=== PATIENT | female | born 1980 | race American Indian/Alaskan Native ===

== ENCOUNTER 2016-12-11 12:34 | Emergency (ER) | payer MEDICAID ==
[2016-12-11 12:53] LABS: Basophils % (Auto) 0.5 % (0.0-1.8); Eosinophils % (Auto) 0.1 % (0.0-4.3); Hematocrit 41.1 % (30.3-42.9); Hemoglobin 13.6 gm/dl (10.1-14.3); Mean Corpuscular HGB Conc 33 % (30-34); Mean Corpuscular Hemoglobin 27 pg (28-32); Mean Corpuscular Volume 83 fl (79-97); Platelet Count 268 K/mm3 (140-440); Red Blood Count 4.98 M/mm3 (3.65-5.03); White Blood Count 6.4 K/mm3 (4.5-11.0)
[2016-12-11 13:17] LABS: Alanine Aminotransferase 17 units/L (7-56); Albumin/Globulin Ratio 1.1 %; Alkaline Phosphatase 55 units/L (35-129); Anion Gap 17 mmol/L; Blood Urea Nitrogen 8 mg/dL (7-17); Calcium 9.2 mg/dL (8.4-10.2); Carbon Dioxide 24 mmol/L (22-30); Chloride 97.8 mmol/L (98-107); Glucose 88 mg/dL (65-100); Lipase 33 units/L (13-60); Potassium 3.8 mmol/L (3.6-5.0); Sodium 135 mmol/L (137-145); Total Protein 7.5 g/dL (6.3-8.2)
[2016-12-11 13:28] LABS: Bacteria,Urine 2+ /HPF (Negative); Bilirubin,Urine NEG (Negative); Blood,Urine NEG (Negative); Ketones,Urine 80 mg/dL (Negative); Leukocyte Esterase,Urine SM (Negative); Mucus,Urine 2+ /HPF; Nitrite,Urine NEG (Negative); Protein,Urine <15 mg/dL mg/dL (Negative); Urobilinogen,Urine < 2.0 mg/dL (<2.0)
[2016-12-11] MEDS ORDERED: NACL 0.9% 1000 ML 1,000 ML IV ONE (14:05)
[2016-12-11] MEDS ORDERED: ZOFRAN IV ONE ×2 (14:05→15:01)
[2016-12-11] MEDS ORDERED: TYLENOL PO ONE (14:05)
[2016-12-11] MEDS ORDERED: FLAGYL PO ONE (14:24)
[2016-12-11] MEDS ORDERED: ROCEPHIN IM ONE (14:24)
[2016-12-11] MEDS ORDERED: ZITHROMAX PO ONE (14:24)
--- NOTE | 2016-12-11 14:54 | Ultrasound Report ---
Pelvic and transvaginal sonography: History: Abdominal pain, . Findings: Uterus measures 12.9 x 7.5 x 10.2 cm. Single intrauterine gestation is noted. CRL of fetus 2.4 cm corresponding to 9 weeks and one day of gestation. heart rate 171 per minute. Small subchorionic bleed. Right ovary 3.6 x 2 x 2.8 cm. No mass. Left ovary 2.2 x 1.8 x 4 cm. No mass. Impression: Single viable intrauterine gestation. Small subchorionic bleed.
[2016-12-11] MEDS ORDERED: ZITHROMAX ONE (14:55)
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
[2016-12-11 16:58] VITALS: BP 119/61
== END 2016-12-11 16:57 | disposition home or self-care (01) ==
LOC: ED 12:34
DX: O26.891 Other specified pregnancy related conditions, first trimester (principal); R10.33 Periumbilical pain; E86.0 Dehydration; O99.011 Anemia complicating pregnancy, first trimester; D57.3 Sickle-cell trait; O99.341 Other mental disorders complicating pregnancy, first trimester; F41.9 Anxiety disorder, unspecified; Z3A.09 9 weeks gestation of pregnancy
CPT/HCPCS: 36415; 76801; 76817; 80053; 81001; 83690; 84702; 84703; 85025; 96361; 96372; 96374; 99284; J0696; J2405; J7030

== ENCOUNTER 2017-10-17 21:28 | Emergency (ER) | payer MEDICAID ==
[2017-10-17 23:54] VITALS: BP 113/80
--- NOTE | 2017-10-18 01:31 | Emergency Department Report ---
ED Extremity Problem HPI - General Chief complaint: Extremity Injury, Lower Stated complaint: ABILATERAL ANKLE PAIN,HYPERVENTILATING Time Seen by Provider: 10/18/17 00:33 Source: patient Mode of arrival: Ambulatory Limitations: No Limitations - History of Present Illness Initial comments: 37-year-old -[place] female who recently delivered a baby 3 months ago comes in for bilateral ankle swelling and pain. Patient reports that when she delivered her baby she has swollen ankles and hypertension. Patient denies any shortness of breathing noted chest pain. She reports that the swelling is upper thighs. Patient also reports that his feet are painful to walk. Patient reports that she has tried elevating them but has not noticed any decrease in the swelling. Patient reports a past medical history of anxiety and iron anemia. MD Complaint: extremity pain, extremity swelling -: This morning Location: bilateral lower extremity History of Same: Yes (during her ) Radiation: none Severity scale (0 -10): 0 Quality: aching Consistency: constant Improves with: nothing Worsens with: weight bearing, walking Associated Symptoms: denies other symptoms. denies: chest pain, shortness of breath, fever, myalgias, arthralgias, rash - Related Data Previous Rx's Medication Instructions Recorded Last Taken Type Ibuprofen [Motrin 800 MG tab] 800 mg PO Q8HR PRN #30 tablet 07/23/17 Unknown Rx Lidocain2.5%/Prilocai2.5% [Emla] 5 gm TP ONCE PRN #1 tube 07/23/17 Unknown Rx Allergies Allergy/AdvReac Type Severity Reaction Status Date / Time No Known Allergies Allergy Verified 01/06/15 11:07 ED Review of Systems ROS: Stated complaint: ABILATERAL ANKLE PAIN,HYPERVENTILATING Other details as noted in HPI Constitutional: denies: chills, fever Eyes: denies: eye pain, eye discharge, vision change ENT: denies: ear pain, throat pain Respiratory: denies: cough, shortness of breath, wheezing Cardiovascular: denies: chest pain, palpitations Endocrine: no symptoms reported Gastrointestinal: denies: abdominal pain, nausea, diarrhea Genitourinary: denies: urgency, dysuria, discharge Musculoskeletal: other (bilateral lower leg swelling) Skin: denies: rash, lesions Neurological: denies: headache, weakness, paresthesias Psychiatric: denies: anxiety, depression Hematological/Lymphatic: denies: easy bleeding, easy bruising ED Past Medical Hx - Past Medical History Hx Hypertension: Yes (with ) Hx CVA: No Hx Heart Attack/AMI: No Hx Congestive Heart Failure: No Hx Diabetes: No Hx Deep Vein Thrombosis: No Hx Pulmonary Embolism: No Hx GERD: No Hx Liver Disease: No Hx Renal Disease: No Hx Sickle Cell Disease: No Hx Arthritis: No Hx Headaches / Migraines: No Hx Seizures: No Hx Kidney Stones: No Hx Psychiatric Treatment: Yes (Anxiety) Hx Asthma: No Hx COPD: No Hx Tuberculosis: No Hx Dementia: No Hx HIV: No Additional medical history: Low Iron(anemia) - Surgical History Hx Coronary Stent: No Hx Open Heart Surgery: No Hx Pacemaker: No Hx Internal Defibrillator: No Hx Cholecystectomy: No Hx Appendectomy: No Hx Breast Surgery: No - Social History Smoking Status: Never Smoker Substance Use Type: None - Medications Home Medications: Home Medications Medication Instructions Recorded Confirmed Last Taken Type Ibuprofen [Motrin 800 MG tab] 800 mg PO Q8HR PRN #30 tablet 07/23/17 Unknown Rx Lidocain2.5%/Prilocai2.5% [Emla] 5 gm TP ONCE PRN #1 tube 07/23/17 Unknown Rx ED Physical Exam - General Limitations: No Limitations General appearance: alert, in no apparent distress - Head Head exam: Present: atraumatic, normocephalic - Eye Eye exam: Present: normal appearance - ENT ENT exam: Present: mucous membranes moist - Neck Neck exam: Present: normal inspection - Respiratory Respiratory exam: Present: normal lung sounds bilaterally. Absent: respiratory distress - Cardiovascular Cardiovascular Exam: Present: regular rate, normal rhythm. Absent: systolic murmur, diastolic murmur, rubs, gallop - GI/Abdominal GI/Abdominal exam: Present: soft, normal bowel sounds - Extremities Exam Extremities exam: Present: full ROM, pedal edema. Absent: tenderness - Back Exam Back exam: Present: normal inspection - Neurological Exam Neurological exam: Present: alert, oriented X3 - Psychiatric Psychiatric exam: Present: normal affect, normal mood - Skin Skin exam: Present: warm, dry, intact, normal color. Absent: rash ED Course Vital Signs 10/17/17 10/17/17 22:43 23:53 Temperature 98.1 F 98.2 F Pulse Rate 68 53 L Respiratory 18 16 Rate Blood Pressure 158/96 113/80 [Left] O2 Sat by Pulse 100 97 Oximetry ED Medical Decision Making - Lab Data Result diagrams: 10/18/17 01:49 10/18/17 01:49 - Medical Decision Making Patient's been evaluated by this provider fast track. Have ordered urinalysis CBC CMP. Labs came back with no concerns. Discussed the patient I'll order a Doppler ultrasound of both legs to rule out any clots. Prescription for the order was given to patient. I discussed the patient she can take Tylenol for pain since she is breast-feeding. Patient verbalized understanding. Critical care attestation.: If time is entered above; I have spent that time in minutes in the direct care of this critically ill patient, excluding procedure time. ED Disposition Clinical Impression: Bilateral lower extremity edema, Bilateral lower extremity pain Disposition: DC- TO HOME OR SELFCARE Is pt being admited?: No Does the pt Need Aspirin: No Condition: Stable Additional Instructions: Please return to the emergency room tomorrow morning approximately 8 AM to have venous Dopplers/ultrasound to both legs. You can take Tylenol for pain. Referrals: PRIMARY CARE,MD [Primary Care Provider] - 3-5 Days your,provider [Other] - 3-5 Days Forms: Work/School Release Form(ED), Accompanied Note
[2017-10-18 02:08] LABS: Bacteria,Urine 1+ /HPF (Negative); Bilirubin,Urine NEG (Negative); Blood,Urine NEG (Negative); Color,Urine Yellow (Yellow); Mucus,Urine FEW /HPF; Protein,Urine <15 mg/dL mg/dL (Negative); Urobilinogen,Urine < 2.0 mg/dL (<2.0)
[2017-10-18 02:18] LABS: Basophils % (Auto) 0.5 % (0.0-1.8); Eosinophils # (Auto) 0.1 K/mm3 (0.0-0.4); Eosinophils % (Auto) 1.4 % (0.0-4.3); Hematocrit 36.2 % (30.3-42.9); Hemoglobin 12.3 gm/dl (10.1-14.3); Lymphocytes # (Auto) 1.9 K/mm3 (1.2-5.4); Lymphocytes % (Auto) 37.3 % (13.4-35.0); Mean Corpuscular HGB Conc 34 % (30-34); Mean Corpuscular Hemoglobin 28 pg (28-32); Mean Corpuscular Volume 81 fl (79-97); Monocytes # (Auto) 0.4 K/mm3 (0.0-0.8); Monocytes % (Auto) 6.9 % (0.0-7.3); Platelet Count 231 K/mm3 (140-440); Red Blood Count 4.44 M/mm3 (3.65-5.03); Red Cell Distribution Width 16.3 % (13.2-15.2)
[2017-10-18 02:40] LABS: Alanine Aminotransferase 18 units/L (7-56); BUN/Creatinine Ratio 28; Blood Urea Nitrogen 11 mg/dL (7-17); Hemolysis Index 6
[2017-10-18 02:57] LABS: Albumin 3.9 g/dL (3.9-5)
== END 2017-10-18 03:38 | disposition home or self-care (01) ==
LOC: ED 21:28
DX: R60.0 Localized edema (principal); M25.571 Pain in right ankle and joints of right foot; M25.572 Pain in left ankle and joints of left foot; F41.9 Anxiety disorder, unspecified; Z86.2 Personal history of diseases of the blood and blood-forming organs and certain disorders involving the immune mechanism
CPT/HCPCS: 36415; 80053; 81001; 85025; 99283

== ENCOUNTER 2017-10-18 09:10 | Outpatient (CLI) | payer MEDICAID | END 2017-10-18 09:11 | disposition home or self-care (01) | LOC: VAS 09:10 | PROVIDERS: ATTEND Physician Assistant | DX: M79.661 Pain in right lower leg (principal); M79.662 Pain in left lower leg; M79.89 Other specified soft tissue disorders | CPT/HCPCS: 93970 ==

== ENCOUNTER 2018-01-13 12:58 | Emergency (ER) | payer SELFPAY ==
[2018-01-13 13:13] VITALS: BP 165/87
--- NOTE | 2018-01-13 14:15 | Emergency Department Report ---
ED Extremity Problem HPI - General Chief complaint: Extremity Injury, Lower Stated complaint: ANKLE PAIN Time Seen by Provider: 01/13/18 14:12 Source: patient Mode of arrival: Ambulatory Limitations: No Limitations - History of Present Illness Initial comments: Patient is a 37-year-old female that presents emergency room with bilateral lower extremity pain and swelling. Patient states it's been going on for 4 days. Patient states the pain is a 2 out of 10. Patient states the pain is worse with movement and walking. M better with elevation and rest. Patient states she was wearing her baby here to be checked out and wanted to be evaluated MD Complaint: extremity pain, extremity swelling -: Sudden Location: bilateral lower extremity History of Same: No -: No myalgia, No arthralgia, No fever, No associated dyspnea, No associated chest pain Radiation: none Severity scale (0 -10): 2 Quality: aching Consistency: constant Improves with: elevation, rest Worsens with: walking, exertion Associated Symptoms: denies: chest pain, shortness of breath, fever, myalgias, arthralgias, rash - Related Data Previous Rx's Medication Instructions Recorded Last Taken Type Ibuprofen [Motrin 800 MG tab] 800 mg PO Q8HR PRN #30 tablet 07/23/17 Unknown Rx Lidocain2.5%/Prilocai2.5% [Emla] 5 gm TP ONCE PRN #1 tube 07/23/17 Unknown Rx Allergies Allergy/AdvReac Type Severity Reaction Status Date / Time No Known Allergies Allergy Verified 01/13/18 13:13 ED Review of Systems ROS: Stated complaint: ANKLE PAIN Other details as noted in HPI Constitutional: denies: chills, fever Eyes: denies: eye pain, eye discharge, vision change ENT: denies: ear pain, throat pain Respiratory: denies: cough, shortness of breath, wheezing Cardiovascular: denies: chest pain, palpitations Endocrine: no symptoms reported Gastrointestinal: denies: abdominal pain, nausea, diarrhea Genitourinary: denies: urgency, dysuria, discharge Musculoskeletal: denies: back pain, joint swelling, arthralgia Skin: denies: rash, lesions Neurological: denies: headache, weakness, paresthesias Psychiatric: denies: anxiety, depression Hematological/Lymphatic: denies: easy bleeding, easy bruising ED Past Medical Hx - Past Medical History Previous Medical History?: Yes Hx Hypertension: Yes (with ) Hx CVA: No Hx Heart Attack/AMI: No Hx Congestive Heart Failure: No Hx Diabetes: No Hx Deep Vein Thrombosis: No Hx Pulmonary Embolism: No Hx GERD: No Hx Liver Disease: No Hx Renal Disease: No Hx Sickle Cell Disease: No Hx Arthritis: No Hx Headaches / Migraines: No Hx Seizures: No Hx Kidney Stones: No Hx Psychiatric Treatment: Yes (Anxiety) Hx Asthma: No Hx COPD: No Hx Tuberculosis: No Hx Dementia: No Hx HIV: No Additional medical history: Low Iron(anemia) - Surgical History Past Surgical History?: No Hx Coronary Stent: No Hx Open Heart Surgery: No Hx Pacemaker: No Hx Internal Defibrillator: No Hx Cholecystectomy: No Hx Appendectomy: No Hx Breast Surgery: No - Family History Family history: no significant - Social History Smoking Status: Never Smoker Substance Use Type: None - Medications Home Medications: Home Medications Medication Instructions Recorded Confirmed Last Taken Type Ibuprofen [Motrin 800 MG tab] 800 mg PO Q8HR PRN #30 tablet 07/23/17 Unknown Rx Lidocain2.5%/Prilocai2.5% [Emla] 5 gm TP ONCE PRN #1 tube 07/23/17 Unknown Rx ED Physical Exam - General Limitations: No Limitations General appearance: alert, in no apparent distress - Head Head exam: Present: atraumatic, normocephalic - Eye Eye exam: Present: normal appearance - ENT ENT exam: Present: mucous membranes moist - Neck Neck exam: Present: normal inspection - Respiratory Respiratory exam: Present: normal lung sounds bilaterally. Absent: respiratory distress - Cardiovascular Cardiovascular Exam: Present: regular rate, normal rhythm. Absent: systolic murmur, diastolic murmur, rubs, gallop - GI/Abdominal GI/Abdominal exam: Present: soft, normal bowel sounds - Extremities Exam Extremities exam: Present: normal inspection (except for mild edema), pedal edema (mild bilateral lower extremity edema noted nonpitting. Positive tenderness to palpation over lower extremity and calves) - Back Exam Back exam: Present: normal inspection - Neurological Exam Neurological exam: Present: alert, oriented X3 - Psychiatric Psychiatric exam: Present: normal affect, normal mood - Skin Skin exam: Present: warm, dry, intact, normal color. Absent: rash ED Course Vital Signs 01/13/18 13:05 Temperature 97.6 F Pulse Rate 53 L Respiratory 18 Rate Blood Pressure 165/87 O2 Sat by Pulse 99 Oximetry - Reevaluation(s) Reevaluation #1: Preliminary reading read as negative. 01/13/18 15:36 Reevaluation #2: Coast all results with patient. Patient agrees plan of care. Patient to be discharged home with follow-up instructions. 01/13/18 16:13 ED Medical Decision Making - Radiology Data Radiology results: report reviewed Doppler ultrasound of bilateral lower extremities negative - Medical Decision Making She is a 37-year-old female that presents emergency room with bilateral lower extremity pain and edema. Patient's ultrasound Doppler pulmonary report was negative for DVT. Patient will be discharged home. Patient is stable for discharge. Patient given discharge instructions patient given return to ER instructions patient instructed to increase water. Patient states she has not been drinking a lot of water and is breast-feeding. Encouraged patient to increase her water to 3 L per day and decrease her salt intake. Patient also encouraged to use compression stockings. Patient encouraged to follow up with primary care in 3-5 days for further evaluation and treatment. - Differential Diagnosis le swelling. salt retention. le pain. dvt. edema. Critical care attestation.: If time is entered above; I have spent that time in minutes in the direct care of this critically ill patient, excluding procedure time. ED Disposition Clinical Impression: Swelling of both lower extremities, Bilateral lower extremity pain Disposition: DC- TO HOME OR SELFCARE Is pt being admited?: No Does the pt Need Aspirin: No Condition: Stable Instructions: Leg Edema (ED) Additional Instructions: Patient follow up with primary care in 3-5 days. Patient to return to ER if condition worsens. Patient increase water. Patient eat a low-salt heart healthy diet. Patient to elevate legs and use compression stockings. Referrals: PRIMARY CARE, [Primary Care Provider] - 3-5 Days Time of Disposition: 16:11
== END 2018-01-13 17:30 | disposition home or self-care (01) ==
LOC: ED 12:58
DX: R22.43 Localized swelling, mass and lump, lower limb, bilateral (principal); M79.605 Pain in left leg; M79.604 Pain in right leg; F41.9 Anxiety disorder, unspecified; Z86.2 Personal history of diseases of the blood and blood-forming organs and certain disorders involving the immune mechanism
CPT/HCPCS: 93970

== ENCOUNTER 2018-08-15 22:55 | Emergency (ER) | payer OTHER ==
[2018-08-15 23:07] VITALS: BP 143/78
[2018-08-15 23:56] LABS: Basophils % (Auto) 0.8 % (0.0-1.8); Eosinophils # (Auto) 0.1 K/mm3 (0.0-0.4); Hematocrit 38.3 % (30.3-42.9); Hemoglobin 12.9 gm/dl (10.1-14.3); Lymphocytes # (Auto) 2.3 K/mm3 (1.2-5.4); Lymphocytes % (Auto) 38.4 % (13.4-35.0); Mean Corpuscular HGB Conc 34 % (30-34); Mean Corpuscular Volume 82 fl (79-97); Monocytes # (Auto) 0.7 K/mm3 (0.0-0.8); Monocytes % (Auto) 11.9 % (0.0-7.3); Platelet Count 258 K/mm3 (140-440); Red Blood Count 4.65 M/mm3 (3.65-5.03); Red Cell Distribution Width 14.2 % (13.2-15.2)
[2018-08-16 00:08] LABS: BUN/Creatinine Ratio 20; Blood Urea Nitrogen 10 mg/dL (7-17); Hemolysis Index 5
--- NOTE | 2018-08-16 00:32 | XRay Report ---
PROCEDURE: XR CHEST ROUTINE 2V TECHNIQUE: PA and lateral chest radiographs were obtained. HISTORY: chest pain COMPARISONS: None. FINDINGS: Heart: Normal. Mediastinum/Vessels: Normal. Lungs/Pleural space: Normal. Bony thorax: No acute osseous abnormality. IMPRESSION: Normal examination. This document is electronically signed by Elliot Aaron MD., August 16 2018 12:29:46 AM ET
--- NOTE | 2018-08-16 05:31 | Emergency Department Report ---
ED General Adult HPI - General Chief complaint: Chest Pain Stated complaint: CHEST PAIN Time Seen by Provider: 08/16/18 00:46 Source: patient Mode of arrival: Ambulatory Limitations: No Limitations - History of Present Illness Initial comments: 37-year-old female to emergency Department complaining of chest pain which started while she was in a very heated argument with her significant other. States stated she felt a sharp pain radiating across her chest, which continue to linger for about 5 minutes and had some tingling which made her glucose cancer. She came to the ER to get evaluated. She reports no trauma, no hemoptysis, no hematemesis, chills, sweats, nausea, vomiting. Pain is resolved at this point, but she did take a baby aspirin Severity scale (0 -10): 6 - Related Data Previous Rx's Medication Instructions Recorded Last Taken Type Ibuprofen [Motrin 800 MG tab] 800 mg PO Q8HR PRN #30 tablet 07/23/17 Unknown Rx Lidocain2.5%/Prilocai2.5% [Emla] 5 gm TP ONCE PRN #1 tube 07/23/17 Unknown Rx Allergies Allergy/AdvReac Type Severity Reaction Status Date / Time No Known Allergies Allergy Verified 01/13/18 13:13 ED Review of Systems ROS: Stated complaint: CHEST PAIN Other details as noted in HPI Constitutional: denies: chills, fever Eyes: denies: eye pain, eye discharge, vision change ENT: denies: ear pain, throat pain Respiratory: denies: cough, shortness of breath, wheezing Cardiovascular: denies: chest pain, palpitations Endocrine: no symptoms reported Gastrointestinal: denies: abdominal pain, nausea, diarrhea Genitourinary: denies: urgency, dysuria, discharge Musculoskeletal: denies: back pain, joint swelling, arthralgia Skin: denies: rash, lesions Neurological: denies: headache, weakness, paresthesias Psychiatric: denies: anxiety, depression Hematological/Lymphatic: denies: easy bleeding, easy bruising ED Past Medical Hx - Past Medical History Previous Medical History?: Yes Hx Hypertension: Yes (with ) Hx CVA: No Hx Heart Attack/AMI: No Hx Congestive Heart Failure: No Hx Diabetes: No Hx Deep Vein Thrombosis: No Hx Pulmonary Embolism: No Hx GERD: No Hx Liver Disease: No Hx Renal Disease: No Hx Sickle Cell Disease: No Hx Arthritis: No Hx Headaches / Migraines: No Hx Seizures: No Hx Kidney Stones: No Hx Psychiatric Treatment: Yes (Anxiety) Hx Asthma: No Hx COPD: No Hx Tuberculosis: No Hx Dementia: No Hx HIV: No Additional medical history: Low Iron(anemia) - Surgical History Past Surgical History?: No Hx Coronary Stent: No Hx Open Heart Surgery: No Hx Pacemaker: No Hx Internal Defibrillator: No Hx Cholecystectomy: No Hx Appendectomy: No Hx Breast Surgery: No - Social History Smoking Status: Never Smoker Substance Use Type: None - Medications Home Medications: Home Medications Medication Instructions Recorded Confirmed Last Taken Type Ibuprofen [Motrin 800 MG tab] 800 mg PO Q8HR PRN #30 tablet 07/23/17 Unknown Rx Lidocain2.5%/Prilocai2.5% [Emla] 5 gm TP ONCE PRN #1 tube 07/23/17 Unknown Rx ED Physical Exam - General Limitations: No Limitations General appearance: alert, in no apparent distress - Head Head exam: Present: atraumatic, normocephalic - Eye Eye exam: Present: normal appearance - ENT ENT exam: Present: mucous membranes moist - Neck Neck exam: Present: normal inspection - Respiratory Respiratory exam: Present: normal lung sounds bilaterally. Absent: respiratory distress - Cardiovascular Cardiovascular Exam: Present: regular rate, normal rhythm. Absent: systolic murmur, diastolic murmur, rubs, gallop - GI/Abdominal GI/Abdominal exam: Present: soft, normal bowel sounds - Extremities Exam Extremities exam: Present: normal inspection - Back Exam Back exam: Present: normal inspection - Neurological Exam Neurological exam: Present: alert, oriented X3 - Psychiatric Psychiatric exam: Present: normal affect, normal mood - Skin Skin exam: Present: warm, dry, intact, normal color. Absent: rash ED Course Vital Signs 08/15/18 23:06 Temperature 97.9 F Pulse Rate 58 L Respiratory 18 Rate Blood Pressure 143/78 O2 Sat by Pulse 100 Oximetry ED Medical Decision Making - Lab Data Result diagrams: 08/15/18 23:30 08/15/18 23:30 - Medical Decision Making Social patient the findings of her examination and testing or lack thereof. She also understands the importance of following up with cardiology for stress test given the nature of her chest pain Critical care attestation.: If time is entered above; I have spent that time in minutes in the direct care of this critically ill patient, excluding procedure time. ED Disposition Clinical Impression: Chest pain, Chest pain in adult Disposition: DC-01 TO HOME OR SELFCARE Is pt being admited?: No Does the pt Need Aspirin: No Condition: Stable Instructions: Chest Pain (ED), Aspirin (By mouth) Referrals: [facility] TAMANNA [Primary Care Provider] - 3-5 Days BUTCH VERA MD [Staff Physician] - 3-5 Days (Please follow with cardiology as we discusses there is a need for an exercise stress test given the nature and evolution of your symptoms.)
== END 2018-08-16 03:46 | disposition home or self-care (01) ==
LOC: ED 22:55
DX: R07.89 Other chest pain (principal); I10 Essential (primary) hypertension; F41.9 Anxiety disorder, unspecified; Z86.2 Personal history of diseases of the blood and blood-forming organs and certain disorders involving the immune mechanism
CPT/HCPCS: 36415; 71046; 80048; 84484; 85025; 93005; 93010

== ENCOUNTER 2019-04-20 15:10 | Emergency (ER) | payer OTHER ==
--- NOTE | 2019-04-20 16:15 | Emergency Department Report ---
Blank Doc - Documentation Documentation: 38-year-old female that presents with headache, bilateral leg pain and swellin gs. HX of last week. This initial assessment/diagnostic orders/clinical plan/treatment(s) is/are subject to change based on patient's health status, clinical progression and re- assessment by fellow clinical providers in the ED. Further treatment and workup at subsequent clinical providers discretion. Patient/guardians urged not to elope from the ED as their condition may be serious if not clinically assessed and managed. Initial orders include: 1- Patient sent to MAIN ED for further evaluation and treatment 2- labs 3- UA
[2019-04-20 16:18] VITALS: BP 128/81
[2019-04-20 16:56] LABS: Basophils % (Auto) 0.3 % (0.0-1.8); Eosinophils # (Auto) 0.1 K/mm3 (0.0-0.4); Eosinophils % (Auto) 0.7 % (0.0-4.3); Hemoglobin 10.2 gm/dl (10.1-14.3); Lymphocytes # (Auto) 1.7 K/mm3 (1.2-5.4); Lymphocytes % (Auto) 21.5 % (13.4-35.0); Monocytes # (Auto) 0.7 K/mm3 (0.0-0.8); Monocytes % (Auto) 8.5 % (0.0-7.3)
[2019-04-20 17:00] LABS: Bacteria,Urine 1+ /HPF (Negative); Mucus,Urine 1+ /HPF
[2019-04-20 17:07] LABS: Bilirubin,Urine NEG (Negative); Blood,Urine MOD (Negative); Color,Urine Yellow (Yellow); Protein,Urine <15 mg/dL mg/dL (Negative); Urobilinogen,Urine < 2.0 mg/dL (<2.0)
[2019-04-20 17:09] LABS: Alanine Aminotransferase 14 units/L (7-56); Albumin 3.1 g/dL (3.9-5); BUN/Creatinine Ratio 18; Blood Urea Nitrogen 7 mg/dL (7-17); Calcium 8.8 mg/dL (8.4-10.2); Hematocrit 30.8 % (30.3-42.9); Hemolysis Index 1; Mean Corpuscular HGB Conc 33 % (30-34); Mean Corpuscular Volume 81 fl (79-97); Platelet Count 350 K/mm3 (140-440); Red Cell Distribution Width 15.6 % (13.2-15.2)
[2019-04-20] MEDS ORDERED: BUTALB/ACETAMINOPHEN/CAFFEINE TAB PO ONE (18:02)
--- NOTE | 2019-04-20 18:05 | Emergency Department Report ---
HPI - General Chief Complaint: Headache Time Seen by Provider: 04/20/19 16:12 - HPI HPI: 38-year-old female presents to the emergency department with a complaint of a 4 to five-day history of a headache. It is mostly around the left scientologist but sometimes it will switch sides. She denies any fever, vision change, slurred speech or any neurological deficits. She has taken some ibuprofen and other OTC meds without any relief. The patient just had a C- section done 5 days ago at [facility] but the baby was unfortunately stillborn. She has a past medical history of anxiety and anemia. She denies any chest pain, shortness of breath but does have some lower extremity swelling. ED Past Medical Hx - Past Medical History Previous Medical History?: Yes Hx Hypertension: No Hx CVA: No Hx Heart Attack/AMI: No Hx Congestive Heart Failure: No Hx Diabetes: No Hx Deep Vein Thrombosis: No Hx Pulmonary Embolism: No Hx GERD: No Hx Liver Disease: No Hx Renal Disease: No Hx Sickle Cell Disease: No Hx Arthritis: No Hx Headaches / Migraines: No Hx Seizures: No Hx Kidney Stones: No Hx Psychiatric Treatment: Yes (Anxiety) Hx Asthma: No Hx COPD: No Hx Tuberculosis: No Hx Dementia: No Hx HIV: No Additional medical history: Low Iron(anemia) - Surgical History Past Surgical History?: No Hx Coronary Stent: No Hx Open Heart Surgery: No Hx Pacemaker: No Hx Internal Defibrillator: No Hx Cholecystectomy: No Hx Appendectomy: No Hx Breast Surgery: No - Social History Smoking Status: Never Smoker Substance Use Type: None - Medications Home Medications: Home Medications Medication Instructions Recorded Confirmed Last Taken Type Ibuprofen [Motrin 800 MG tab] 800 mg PO Q8HR PRN #30 tablet 07/23/17 Unknown Rx Lidocain2.5%/Prilocai2.5% [Emla] 5 gm TP ONCE PRN #1 tube 07/23/17 Unknown Rx Butalb/Acetaminophen/Caffeine 1 cap PO Q8HR PRN #12 cap 04/20/19 Unknown Rx [Fioricet 50-300-40 mg CAP] ED Review of Systems ROS: Stated complaint: RECENT C SECTION/HBP Other details as noted in HPI Comment: All other systems reviewed and negative Constitutional: denies: chills, fever Eyes: denies: eye pain, vision change ENT: denies: ear pain, throat pain Respiratory: denies: cough, shortness of breath Cardiovascular: edema. denies: chest pain Gastrointestinal: denies: abdominal pain, vomiting Genitourinary: denies: dysuria, discharge Musculoskeletal: myalgia. denies: back pain Skin: denies: rash, lesions Neurological: headache. denies: weakness, numbness, paresthesias Physical Exam - Physical Exam Vital Signs: Vital Signs 04/20/19 16:12 Temperature 98.3 F Pulse Rate 75 Respiratory 17 Rate Blood Pressure 128/81 O2 Sat by Pulse 99 Oximetry Physical Exam: GENERAL: The patient is well-developed well-nourished. HENT: Normocephalic. Atraumatic. Patient has moist mucous membranes. EYES: Extraocular motions are intact. Pupils equal reactive to light bilaterally. No nystagmus. NECK: Supple. Trachea is midline. CHEST/LUNGS: Clear to auscultation. There is no respiratory distress noted. HEART/CARDIOVASCULAR: Regular. There is no tachycardia. There is no murmur. ABDOMEN: Abdomen is soft, nontender. Patient has normal bowel sounds. There is no abdominal distention. SKIN: Skin is warm and dry. NEURO: The patient is awake, alert, and oriented. The patient is cooperative. The patient has no focal neurologic deficits. Normal speech. Cranial nerves II through XII grossly intact. MUSCULOSKELETAL: There is no tenderness or deformity.There is no evidence of acute injury. ED Course Vital Signs 04/20/19 16:12 Temperature 98.3 F Pulse Rate 75 Respiratory 17 Rate Blood Pressure 128/81 O2 Sat by Pulse 99 Oximetry ED Medical Decision Making - Lab Data Result diagrams: 04/20/19 16:30 04/20/19 16:30 - Radiology Data Radiology results: report reviewed CT head/brain wo con INDICATION / CLINICAL INFORMATION: 38 years Female; headache. TECHNIQUE: Routine CT head without contrast. All CT scans at this location are performed using CT dose reduction for ALARA by means of automated exposure control. COMPARISON: None. FINDINGS: BRAIN / INTRACRANIAL CONTENTS: There is slight increased attenuation seen along the posterolateral tentorium cerebelli on the right, felt to be related to prominent vessels, which should be of no clinical significance. Otherwise, no acute hemorrhage, mass effect, midline shift, hydrocephalus, or acute, large territorial infarct. No chronic infarct or atrophy appreciated. No significant white matter abnormality. CRANIOCERVICAL JUNCTION: No significant abnormality. ORBITS: No significant abnormality of visualized orbits. SINUSES / MASTOIDS: No significant abnormality the visualized paranasal sinuses or mastoid air cells. ADDITIONAL FINDINGS: None. IMPRESSION: 1. No focal mass, hemorrhage, hydrocephalus, or acute, large territorial infarct. - Medical Decision Making This patient presents with a headache that has been going on for the past 4-5 days since she had a . On examination she does not have any focal, motor or sensory deficits in her cranial nerves are intact. CT scan of the head without contrast was done that does not show any bleed, shift, mass, ischemia, or any other acute process. Her labs are unremarkable and are not consistent with preeclampsia. Vital signs stable including being afebrile. The patient complains of some lower extremity swelling and discomfort. I do not appreciate any significant edema but given the patient's recent , surgery, and her complaints, the patient will be set up for bilateral lower extremity venous Doppler ultrasounds tomorrow. If positive, she will be redirected to the emergency department. She was given 1 dose of Fioricet here for her headache which completely resolved the headache prior to discharge. - Differential Diagnosis tension headache, migraine, subarachnoid Critical Care Time: No Critical care attestation.: If time is entered above; I have spent that time in minutes in the direct care of this critically ill patient, excluding procedure time. ED Disposition Clinical Impression: Swelling of lower extremity Headache Qualifiers: Headache type: unspecified Headache chronicity pattern: unspecified pattern Intractability: not intractable Qualified Code(s): R51 - Headache Disposition: DC-01 TO HOME OR SELFCARE Is pt being admited?: No Condition: Stable Instructions: Acute Headache (ED), Leg Edema (ED) Additional Instructions: Please follow-up with a primary care physician in the next few days. Return to the emergency Department with any worsening of your symptoms or any acute distress. I am giving you in order to return in the morning to the outpatient imaging portion of the hospital to have both of your legs ultrasounded to rule out blood clots. If positive, he will be redirected back to the emergency department. If negative, please make sure to follow-up with your primary care physician and METAPHYSICIST. Prescriptions: Butalb/Acetaminophen/Caffeine [Fioricet 50-300-40 mg CAP] 1 cap PO Q8HR PRN #12 cap PRN Reason: Headache Referrals: PCP, Your [Other] - 2-3 Days Time of Disposition: 20:01
--- NOTE | 2019-04-20 19:35 | Cat Scan Report ---
CT head/brain wo con INDICATION / CLINICAL INFORMATION: 38 years Female; headache. TECHNIQUE: Routine CT head without contrast. All CT scans at this location are performed using CT dos e reduction for ALARA by means of automated exposure control. COMPARISON: None. FINDINGS: BRAIN / INTRACRANIAL CONTENTS: There is slight increased attenuation seen along the posterolateral te ntorium cerebelli on the right, felt to be related to prominent vessels, which should be of no clinic al significance. Otherwise, no acute hemorrhage, mass effect, midline shift, hydrocephalus, or acute, large territori al infarct. No chronic infarct or atrophy appreciated. No significant white matter abnormality. CRANIOCERVICAL JUNCTION: No significant abnormality. ORBITS: No significant abnormality of visualized orbits. SINUSES / MASTOIDS: No significant abnormality the visualized paranasal sinuses or mastoid air cells. ADDITIONAL FINDINGS: None. IMPRESSION: 1. No focal mass, hemorrhage, hydrocephalus, or acute, large territorial infarct. Signer Name: Devaughn Law MD, III Signed: 04/20/2019 7:31 PM Workstation Name: [id number]
== END 2019-04-20 20:20 | disposition home or self-care (01) ==
LOC: ED 15:10
DX: R22.43 Localized swelling, mass and lump, lower limb, bilateral (principal); F41.9 Anxiety disorder, unspecified; Z86.2 Personal history of diseases of the blood and blood-forming organs and certain disorders involving the immune mechanism; Z79.1 Long term (current) use of non-steroidal anti-inflammatories (NSAID); Z79.899 Other long term (current) drug therapy
CPT/HCPCS: 36415; 70450; 80053; 81001; 85025; 99284

== ENCOUNTER 2019-04-21 10:44 | Outpatient (CLI) | payer OTHER ==
--- NOTE | 2019-04-21 13:18 | Vascular Lab Report ---
DUPLEX DOPPLER LOWER EXTREMITY VEINS, BILATERAL INDICATION: BILATERAL LOWER EXTREMITY PAIN AND SWELLING. TECHNIQUE: Duplex doppler imaging was performed through the veins of both lower extremities using venous bisi leo and other maneuvers. COMPARISON: None available. FINDINGS: Right Common Femoral vein: Negative. Right Superficial Femoral vein: Negative. Right Popliteal vein: Negative. Right Calf veins: Negative. Left Common Femoral vein: Negative. Left Superficial Femoral vein: Negative. Left Popliteal vein: Negative. Left Calf veins: Negative. Additional findings: None. IMPRESSION: 1. No sonographic evidence for DVT in either lower extremity. Signer Name: Bora Vyas MD Signed: 04/21/2019 1:14 PM Workstation Name: [id number]
== END 2019-04-21 10:45 | disposition home or self-care (01) ==
LOC: VAS 10:44
PROVIDERS: ATTEND Emergency Medicine
DX: M79.605 Pain in left leg (principal); M79.604 Pain in right leg
CPT/HCPCS: 93970

== ENCOUNTER 2019-04-25 08:50 | Observation (INO) | payer OTHER ==
[2019-04-25 10:34] LABS: Basophils % (Auto) 0.6 % (0.0-1.8); Eosinophils # (Auto) 0.1 K/mm3 (0.0-0.4); Eosinophils % (Auto) 0.8 % (0.0-4.3); Hematocrit 31.9 % (30.3-42.9); Hemoglobin 10.5 gm/dl (10.1-14.3); Lymphocytes # (Auto) 1.5 K/mm3 (1.2-5.4); Lymphocytes % (Auto) 24.7 % (13.4-35.0); Mean Corpuscular HGB Conc 33 % (30-34); Mean Corpuscular Volume 81 fl (79-97); Monocytes # (Auto) 0.4 K/mm3 (0.0-0.8); Monocytes % (Auto) 6.2 % (0.0-7.3); Platelet Count 409 K/mm3 (140-440); Red Blood Count 3.95 M/mm3 (3.65-5.03); Red Cell Distribution Width 15.3 % (13.2-15.2)
[2019-04-25 10:46] LABS: INR 1.04 (0.87-1.13)
--- NOTE | 2019-04-25 10:46 | Emergency Department Report ---
ED General Adult HPI - General Chief complaint: Abdominal Pain Stated complaint: BODY PAIN/HEMORRHOIDS Time Seen by Provider: 04/25/19 09:33 Source: patient Mode of arrival: Wheelchair Limitations: No Limitations - History of Present Illness Initial comments: Patient presents to the emergency department with the chief complaint of bilateral was strongly pain, abdominal pain, chest pain, shortness breath. Patient states she had an emergent for demise on April 15 and has had issues since that time. Patient complains of a lower lower extremity leg pain or swelling as well as diffuse abdominal pain. She also complains of diffuse chest pain with shortness of breath. -: Gradual Location: chest, abdomen Severity scale (0 -10): 5 Quality: sharp Consistency: constant Improves with: none Worsens with: none Associated Symptoms: denies other symptoms Treatments Prior to Arrival: none - Related Data Previous Rx's Medication Instructions Recorded Last Taken Type Ibuprofen [Motrin 800 MG tab] 800 mg PO Q8HR PRN #30 tablet 07/23/17 Unknown Rx Lidocain2.5%/Prilocai2.5% [Emla] 5 gm TP ONCE PRN #1 tube 07/23/17 Unknown Rx Butalb/Acetaminophen/Caffeine 1 cap PO Q8HR PRN #12 cap 04/20/19 Unknown Rx [Fioricet 50-300-40 mg CAP] Allergies Allergy/AdvReac Type Severity Reaction Status Date / Time No Known Allergies Allergy Verified 01/13/18 13:13 ED Review of Systems ROS: Stated complaint: BODY PAIN/HEMORRHOIDS Other details as noted in HPI Constitutional: denies: chills, fever Eyes: denies: eye pain, eye discharge, vision change ENT: denies: ear pain, throat pain Respiratory: denies: cough, shortness of breath, wheezing Cardiovascular: denies: chest pain, palpitations Endocrine: no symptoms reported Gastrointestinal: denies: abdominal pain, nausea, diarrhea Genitourinary: denies: urgency, dysuria, discharge Musculoskeletal: denies: back pain, joint swelling, arthralgia Skin: denies: rash, lesions Neurological: denies: headache, weakness, paresthesias Psychiatric: denies: anxiety, depression Hematological/Lymphatic: denies: easy bleeding, easy bruising ED Past Medical Hx - Past Medical History Previous Medical History?: Yes Hx Hypertension: Yes Hx CVA: No Hx Heart Attack/AMI: No Hx Congestive Heart Failure: No Hx Diabetes: No Hx Deep Vein Thrombosis: No Hx Pulmonary Embolism: No Hx GERD: No Hx Liver Disease: No Hx Renal Disease: No Hx Sickle Cell Disease: No Hx Arthritis: No Hx Headaches / Migraines: No Hx Seizures: No Hx Kidney Stones: No Hx Psychiatric Treatment: Yes (Anxiety) Hx Asthma: No Hx COPD: No Hx Tuberculosis: No Hx Dementia: No Hx HIV: No Additional medical history: Low Iron(anemia) - Surgical History Past Surgical History?: Yes Hx Coronary Stent: No Hx Open Heart Surgery: No Hx Pacemaker: No Hx Internal Defibrillator: No Hx Cholecystectomy: No Hx Appendectomy: No Hx Breast Surgery: No Additional Surgical History: x 1 - Social History Smoking Status: Never Smoker Substance Use Type: None - Medications Home Medications: Home Medications Medication Instructions Recorded Confirmed Last Taken Type Ibuprofen [Motrin 800 MG tab] 800 mg PO Q8HR PRN #30 tablet 07/23/17 Unknown Rx Lidocain2.5%/Prilocai2.5% [Emla] 5 gm TP ONCE PRN #1 tube 07/23/17 Unknown Rx Butalb/Acetaminophen/Caffeine 1 cap PO Q8HR PRN #12 cap 04/20/19 Unknown Rx [Fioricet 50-300-40 mg CAP] ED Physical Exam - General Limitations: No Limitations General appearance: alert, in no apparent distress - Head Head exam: Present: atraumatic, normocephalic - Eye Eye exam: Present: normal appearance, PERRL, EOMI - ENT ENT exam: Present: mucous membranes moist - Neck Neck exam: Present: normal inspection - Respiratory Respiratory exam: Present: normal lung sounds bilaterally. Absent: respiratory distress - Cardiovascular Cardiovascular Exam: Present: regular rate, normal rhythm. Absent: systolic murmur, diastolic murmur, rubs, gallop - GI/Abdominal GI/Abdominal exam: Present: soft, normal bowel sounds. Absent: distended, tenderness - Extremities Exam Extremities exam: Present: normal inspection - Back Exam Back exam: Present: normal inspection - Neurological Exam Neurological exam: Present: alert, oriented X3, CN II-XII intact. Absent: motor sensory deficit - Psychiatric Psychiatric exam: Present: normal affect, normal mood - Skin Skin exam: Present: warm, dry, intact, normal color. Absent: rash ED Course Vital Signs 04/25/19 04/25/19 08:53 11:36 Temperature 99.1 F Pulse Rate 80 75 Respiratory 16 16 Rate Blood Pressure 122/85 Blood Pressure 125/86 [Left] O2 Sat by Pulse 99 99 Oximetry ED Medical Decision Making - Lab Data Result diagrams: 04/25/19 10:21 04/25/19 10:21 Lab Results 04/25/19 Range/Units 10:21 WBC 6.2 (4.5-11.0) K/mm3 RBC 3.95 (3.65-5.03) M/mm3 Hgb 10.5 (10.1-14.3) gm/dl Hct 31.9 (30.3-42.9) % MCV 81 (79-97) fl MCH 27 L (28-32) pg MCHC 33 (30-34) % RDW 15.3 H (13.2-15.2) % Plt Count 409 (140-440) K/mm3 Lymph % (Auto) 24.7 (13.4-35.0) % Carlton % (Auto) 6.2 (0.0-7.3) % Eos % (Auto) 0.8 (0.0-4.3) % Baso % (Auto) 0.6 (0.0-1.8) % Lymph # 1.5 (1.2-5.4) K/mm3 Carlton # 0.4 (0.0-0.8) K/mm3 Eos # 0.1 (0.0-0.4) K/mm3 Baso # 0.0 (0.0-0.1) K/mm3 Seg Neutrophils % 67.7 (40.0-70.0) % Seg Neutrophils # 4.2 (1.8-7.7) K/mm3 - Radiology Data Radiology results: report reviewed - Medical Decision Making Results discussed with patient Critical care attestation.: If time is entered above; I have spent that time in minutes in the direct care of this critically ill patient, excluding procedure time. ED Disposition Clinical Impression: Intra-abdominal abscess Disposition: OP ADMIT IP TO THIS HOSP Is pt being admited?: Yes Does the pt Need Aspirin: No Condition: Stable Instructions: Abdominal Pain (ED) Referrals: YADIRA ROSARIO [Other] - 3-5 Days
[2019-04-25 10:47] LABS: Partial Thromboplastin Time 25.7 Sec. (24.2-36.6)
[2019-04-25 10:56] LABS: Alanine Aminotransferase 12 units/L (7-56); Albumin 3.3 g/dL (3.9-5); BUN/Creatinine Ratio 30; Blood Urea Nitrogen 9 mg/dL (7-17); Calcium 9.3 mg/dL (8.4-10.2); Hemolysis Index 11
[2019-04-25 11:31] LABS: Bilirubin,Urine NEG (Negative); Blood,Urine LG (Negative); Color,Urine Straw (Yellow); Mucus,Urine FEW /HPF; Protein,Urine <15 mg/dL mg/dL (Negative); Urobilinogen,Urine < 2.0 mg/dL (<2.0)
--- NOTE | 2019-04-25 12:06 | Cat Scan Report ---
CTA CHEST WITH IV CONTRAST INDICATION: CP with SOB. TECHNIQUE: Axial CT images were obtained through the chest after injection of 100 cc Omnipaque 350 IV contrast. 3 plane MIP reconstructions were produced. All CT scans at this location are performed using CT dose reduction for ALARA by means of automated exposure control. COMPARISON: None available. FINDINGS: Pulmonary Arteries: No pulmonary emboli. Thoracic Aorta: No acute abnormality. Heart: Normal. Lungs: No acute air space or interstitial disease. Pleura: No pleural effusion. No pneumothorax. Lymph Nodes: No significant adenopathy. Additional Findings: None. Skeletal Structures: No significant osseous abnormality. IMPRESSION: 1. No CT evidence for pulmonary embolism. 2. No acute findings. Signer Name: Steve Bowden MD Signed: 04/25/2019 12:02 PM Workstation Name: [id number]
--- NOTE | 2019-04-25 12:14 | Cat Scan Report ---
CT ABDOMEN AND PELVIS WITH IV CONTRAST INDICATION: abdominal pain. COMPARISON: None available. TECHNIQUE: All CT scans at this facility use dose modulation, automated exposure control, iterative reconstructi on or weight based dosing, when appropriate, to reduce radiation dose to as low as reasonably achieva ble. FINDINGS: Lung Bases: No significant abnormality. Skeletal System: No acute abnormality. ABDOMEN: Liver: No significant abnormality. Gallbladder: No significant abnormality. Bile Ducts: No significant abnormality. Pancreas: No significant abnormality. Spleen: No significant abnormality. Adrenals: No significant abnormality. Right Kidney: No acute findings. Incidental cysts. Left Kidney: No acute findings. Incidental posterior cyst. Upper GI tract: No significant abnormality. Lymph Nodes: No significant adenopathy. Aorta: No significant abnormality. Additional Findings: No significant abnormality. PELVIS: Colon: No acute abnormality. Diverticulosis is noted. Urinary Bladder and Distal Ureters: No significant abnormality. Appendix: No significant abnormality. Lymph Nodes: No significant adenopathy. Additional Findings: Lateral to the cecum, there is a circumscribed fluid collection with mild periph eral enhancement. This measures 5.1 x 2.3 cm on coronal image 42 and extends anterior to posterior 2. 4 cm on axial image 92. There is mild stranding/inflammation surrounding this. Adjacent ascending col on is normal. Uterus is heterogeneous and enlarged, this could be due to state. IMPRESSION: 1. Circumscribed fluid collection lateral to the descending colon in the right lower quadrant with m ild surrounding inflammation. This measures 5.1 x 2.4 x 2.3 cm. This is not associated with underlyin g colon or the appendix. This could be a small abscess. This does not have the typical appearance of epiploic appendicitis or omental infarct. 2. Incidental findings, as above. Signer Name: Steve Bowden MD Signed: 04/25/2019 12:10 PM Workstation Name: [id number]
[2019-04-25] MEDS ORDERED: ALBUTEROL 2.5 MG/3 ML NEBU IH PRN (14:13)
[2019-04-25] MEDS ORDERED: PIPERACIL/TAZOBACTA 4.5/NS 100 4.5 GM/100 ML VIAL IV ONE (14:13)
[2019-04-25] MEDS ORDERED: ONDANSETRON 4 MG/2 ML INJ IV PRN (14:13)
[2019-04-25] MEDS ORDERED: SODIUM CHLORIDE 0.9% 1000 ML 1,000 ML IV ONE (14:28)
[2019-04-25] MEDS ORDERED: SODIUM CHLORIDE 0.9% 1000 ML 1,000 ML ONE (14:30)
--- NOTE | 2019-04-25 14:59 | Consultation ---
History of Present Illness Consult date: 04/25/19 Reason for consult: abdominal pain Chief complaint: abdominal pain - History of present illness History of present illness: 38 yo F with hx of csection for demise on Apr 15 presents to the ER for t he second time this week with multiple complaints. She states she has been having r sided abdominal pain since the csection. The pain is sharp and radiates towards her back. It is located in the right lower abdomen. Pain medication helps slightly. She states walking exacerbates the pain. No f/c, cp, sob. No n/v. She is chronically constipated and has not had a BM in 1 week or more. She is tolerating a diet. She also c/o dull "distant" headache and leg swelling. She also c/o hemorrhoid pain. Past History Past Medical History: No medical history Past Surgical History: Social history: no significant social history Family history: no significant family history Medications and Allergies Allergies Allergy/AdvReac Type Severity Reaction Status Date / Time No Known Allergies Allergy Verified 01/13/18 13:13 Home Medications Medication Instructions Recorded Confirmed Last Taken Type Ibuprofen [Motrin 800 MG tab] 800 mg PO Q8HR PRN #30 tablet 07/23/17 Unknown Rx Lidocain2.5%/Prilocai2.5% [Emla] 5 gm TP ONCE PRN #1 tube 07/23/17 Unknown Rx Butalb/Acetaminophen/Caffeine 1 cap PO Q8HR PRN #12 cap 04/20/19 Unknown Rx [Fioricet 50-300-40 mg CAP] Active Meds: Active Medications Acetaminophen (Tylenol) 650 mg PO Q4H PRN PRN Reason: Pain MILD(1-3)/Fever >100.5/WILLIS Albuterol (Proventil) 2.5 mg IH Q4HRT PRN PRN Reason: Shortness Of Breath Sodium Chloride (Nacl 0.45% 1000 Ml) 1,000 mls @ 125 mls/hr IV DIRECT GUILLE Piperacillin Sod/Tazobactam Sod (Zosyn/Ns 4.5gm/100ml) 4.5 gm in 100 mls @ 200 mls/hr IV Q8HR GUILLE; Protocol Metronidazole (Flagyl 500 Mg/100 Ml) 500 mg in 100 mls @ 100 mls/hr IV Q8HR GUILLE; Protocol Sodium Chloride (Nacl 0.9% 1000 Ml) 1,000 mls @ 999 mls/hr IV BOLUS ONE Stop: 04/25/19 15:28 Last Admin: 04/25/19 14:33 Dose: 999 mls/hr Documented by: Ondansetron HCl (Zofran) 4 mg IV Q8H PRN PRN Reason: Nausea And Vomiting Sodium Chloride (Sodium Chloride Flush Syringe 10 Ml) 10 ml IV BID GUILLE Sodium Chloride (Sodium Chloride Flush Syringe 10 Ml) 10 ml IV PRN PRN PRN Reason: LINE FLUSH Review of Systems All systems: negative (10 pt ROS performed and negative except for that listed in HPI) Exam Vital Signs Temp Pulse Resp BP Pulse Ox 99.1 F 80 16 122/85 99 04/25/19 08:53 04/25/19 08:53 04/25/19 08:53 04/25/19 08:53 04/25/19 08:53 Narrative exam: Gen: AAOx3. NAD ENT: no scleral icterus or conjunctival pallor CV: S1, S2+ resp: even and unlabored Abd: soft, ND, RLQ TTP. No r/r/g. pfannestiel incision healed. Steristrips in place. No signs of infection Ext: no c/c/e Results - Labs 04/25/19 10:21 04/25/19 10:21 Abnormal lab results 04/25/19 04/25/19 04/25/19 Range/Units 10:21 10:21 10:40 MCH 27 L (28-32) pg RDW 15.3 H (13.2-15.2) % Creatinine 0.3 L (0.7-1.2) mg/dL Albumin 3.3 L (3.9-5) g/dL Urine pH 8.0 H (5.0-7.0) Diabetes panel 04/25/19 Range/Units 10:21 Sodium 141 (137-145) mmol/L Potassium 4.3 (3.6-5.0) mmol/L Chloride 104.5 (98-107) mmol/L Carbon Dioxide 23 (22-30) mmol/L BUN 9 (7-17) mg/dL Creatinine 0.3 L (0.7-1.2) mg/dL Glucose 81 (65-100) mg/dL Calcium 9.3 (8.4-10.2) mg/dL AST 13 (5-40) units/L ALT 12 (7-56) units/L Alkaline Phosphatase 92 (35-129) units/L Total Protein 6.4 (6.3-8.2) g/dL Albumin 3.3 L (3.9-5) g/dL Calcium panel 04/25/19 Range/Units 10:21 Calcium 9.3 (8.4-10.2) mg/dL Albumin 3.3 L (3.9-5) g/dL Pituitary panel 04/25/19 Range/Units 10:21 Sodium 141 (137-145) mmol/L Potassium 4.3 (3.6-5.0) mmol/L Chloride 104.5 (98-107) mmol/L Carbon Dioxide 23 (22-30) mmol/L BUN 9 (7-17) mg/dL Creatinine 0.3 L (0.7-1.2) mg/dL Glucose 81 (65-100) mg/dL Calcium 9.3 (8.4-10.2) mg/dL Adrenal panel 04/25/19 Range/Units 10:21 Sodium 141 (137-145) mmol/L Potassium 4.3 (3.6-5.0) mmol/L Chloride 104.5 (98-107) mmol/L Carbon Dioxide 23 (22-30) mmol/L BUN 9 (7-17) mg/dL Creatinine 0.3 L (0.7-1.2) mg/dL Glucose 81 (65-100) mg/dL Calcium 9.3 (8.4-10.2) mg/dL Total Bilirubin < 0.20 (0.1-1.2) mg/dL AST 13 (5-40) units/L ALT 12 (7-56) units/L Alkaline Phosphatase 92 (35-129) units/L Total Protein 6.4 (6.3-8.2) g/dL Albumin 3.3 L (3.9-5) g/dL - Imaging CT scan - abdomen: report reviewed, image reviewed CT scan - pelvis: report reviewed, image reviewed Assessment and Plan 38 yo F with pericolonic (cecum) abscess of unknown etiology Plan: 1. Admit for observation to hospitalist service 2. IV abx - zosyn 3. prn pain control 4. consult to IR for drainage of abscess 5. sitz baths, preparation H for hemorrhoids No acute surgical intervention Thank you, please call with questions.
[2019-04-25] MEDS ORDERED: LORazepam 2 MG/ML VIAL IV ONE (16:20)
--- NOTE | 2019-04-25 16:21 | History and Physical Report ---
History of Present Illness Date of admission: 04/25/19 14:13 Chief complaint: My stomach hurts History of present illness: 38 YO Female with Obesity, HTN , Hemorrhoids, Anxiety presents to ED for evaluation. Pt states that she has experienced pain in her abdomen over the past 10days. Pt states that pain is 5/10, localized to the right side of her abdomen, worsened with ambulation/movement, relieved with rest. Pt is POD #10 S/P emergency secondary to IUFD on Apr 15 presents. Pt states that her pain has become progressively worse with increasing frequency over the past 3-4 days. Pt acknowledges vaginal bleeding with saturation of 1 pad daily. Pt transported to [facility] via private vehicle. pt seen and evaluated in ED and found to have Intraabdominal abscess. Pt initiated on IV antibiotic therapy, Surgery team consulted in ED. IR team consulted in ED. Pt denies fever, chills, CP, Palpitations, Trauma, Productive cough, unintentional weight loss, ingestion of food/water from new/different sources, or recent ill contacts. No prior admission for review. All listed medication reconciled at time of admission. Past History Past Medical History: No medical history Past Surgical History: Social history: no significant social history Family history: no significant family history Medications and Allergies Allergies Allergy/AdvReac Type Severity Reaction Status Date / Time No Known Allergies Allergy Verified 01/13/18 13:13 Home Medications Medication Instructions Recorded Confirmed Last Taken Type Ibuprofen [Motrin 800 MG tab] 800 mg PO Q8HR PRN #30 tablet 07/23/17 Unknown Rx Lidocain2.5%/Prilocai2.5% [Emla] 5 gm TP ONCE PRN #1 tube 07/23/17 Unknown Rx Butalb/Acetaminophen/Caffeine 1 cap PO Q8HR PRN #12 cap 04/20/19 Unknown Rx [Fioricet 50-300-40 mg CAP] Active Meds: Active Medications Acetaminophen (Tylenol) 650 mg PO Q4H PRN PRN Reason: Pain MILD(1-3)/Fever >100.5/WILLIS Albuterol (Proventil) 2.5 mg IH Q4HRT PRN PRN Reason: Shortness Of Breath Alprazolam (Xanax) 0.5 mg PO Q12HR GUILLE Sodium Chloride (Nacl 0.45% 1000 Ml) 1,000 mls @ 125 mls/hr IV DIRECT GUILLE Piperacillin Sod/Tazobactam Sod (Zosyn/Ns 4.5gm/100ml) 4.5 gm in 100 mls @ 200 mls/hr IV Q8HR GUILLE; Protocol Metronidazole (Flagyl 500 Mg/100 Ml) 500 mg in 100 mls @ 100 mls/hr IV Q8HR GUILLE; Protocol Lorazepam (Ativan) 1 mg IV ONCE ONE Stop: 04/25/19 16:21 Ondansetron HCl (Zofran) 4 mg IV Q8H PRN PRN Reason: Nausea And Vomiting Sodium Chloride (Sodium Chloride Flush Syringe 10 Ml) 10 ml IV BID GUILLE Sodium Chloride (Sodium Chloride Flush Syringe 10 Ml) 10 ml IV PRN PRN PRN Reason: LINE FLUSH Review of Systems Constitutional: no weight loss, no weight gain, no fever, no chills Ears, nose, mouth and throat: no ear pain, no ear discharge, no tinnitis, no nose pain, no nasal congestion, no nasal discharge Breasts: no change in shape, no swelling, no mass, no pain, no skin changes Cardiovascular: no chest pain, no orthopnea, no palpitations, no rapid/irregular heart beat Respiratory: no cough, no cough with sputum, no hemoptysis, no shortness of breath, no dyspnea on exertion Gastrointestinal: abdominal pain, nausea, no coffee ground emesis, no melena, no hematochezia, no loss of appetite, no early satiety, no heartburn Genitourinary Female: no pelvic pain, no flank pain, no menorrhagia, no dysuria, no stress incontinence, no incomplete emptying, no urge incontinence, no mixed incontinence Menstruation: no post hysterectomy, no ammenorrhea, no ammenorrhea on BC, no period normal, no period heavy, no period spotting, no menses 1-7 days Rectal: no pain, no incontinence, no bleeding Musculoskeletal: no neck stiffness, no neck pain, no shooting arm pain, no shooting leg pain, no leg numbness/tingling Integumentary: no rash, no pruritis, no redness, no wounds, no jaundice Neurological: no transient paralysis, no paralysis, no weakness, no parathesias, no tingling, no seizures, no tremors Psychiatric: no anxiety, no memory loss, no sleep disturbances, no insomnia, no hypersomnia, no change in appetite, no change in libido, no suicidal ideation, no disorientation Endocrine: no cold intolerance, no heat intolerance, no polyphagia, no excessive thirst, no polyuria, no nocturia, no excessive sweating Hematologic/Lymphatic: no easy bruising, no easy bleeding, no lymphadenopathy, no lymphedema Allergic/Immunologic: no urticaria, no allergic rhinitis, no persistent infections, no anaphylaxis, no angioedema Exam - Constitutional Vitals: Temp Pulse Resp BP Pulse Ox 99.1 F 65 16 117/78 100 04/25/19 08:53 04/25/19 15:01 04/25/19 15:01 04/25/19 15:01 04/25/19 15:01 General appearance: Present: mild distress - EENT Eyes: Present: PERRL ENT: hearing intact, clear oral mucosa - Neck Neck: Present: supple, normal ROM - Respiratory Respiratory effort: normal Respiratory: bilateral: CTA - Cardiovascular Heart Sounds: Present: S1 & S2. Absent: rub, click - Extremities Extremities: pulses symmetrical, No edema Peripheral Pulses: within normal limits - Abdominal General gastrointestinal: Present: soft, tender, non-distended, normal bowel sounds. Absent: hepatomegaly, splenomegaly Female genitourinary: Present: normal - Integumentary Integumentary: Present: clear, warm, dry - Musculoskeletal Musculoskeletal: gait normal, strength equal bilaterally - Psychiatric Psychiatric: appropriate mood/affect, intact judgment & insight - Neurologic Neurologic: CNII-XII intact, moves all extremities Results - Labs CBC & Chem 7: 04/25/19 10:21 04/25/19 10:21 Labs: Abnormal lab results 04/25/19 04/25/19 04/25/19 Range/Units 10:21 10:21 10:40 MCH 27 L (28-32) pg RDW 15.3 H (13.2-15.2) % Creatinine 0.3 L (0.7-1.2) mg/dL Albumin 3.3 L (3.9-5) g/dL Urine pH 8.0 H (5.0-7.0) Assessment and Plan - Patient Problems (1) Intra-abdominal abscess Current Visit: Yes Status: Acute Plan to address problem: IV antibiotic therapy, CT ABdomen/Pelvis, Surgery team consulted, IR team consulted, serial abdominal exam, (2) Anxiety Current Visit: Yes Status: Acute Plan to address problem: Xanax BID/Prn, supportive care. (3) Hemorrhoid Current Visit: Yes Status: Acute Qualifiers: Hemorrhoid type: unspecified Qualified Code(s): K64.9 - Unspecified hemorrhoids Plan to address problem: hemorrhoid cream, supportive care. (4) DVT prophylaxis Current Visit: Yes Status: Acute Plan to address problem: SCD to BLE while in bed, Pt ambulatory
[2019-04-25] MEDS ORDERED: LORazepam 2 MG/ML VIAL ONE (17:01)
[2019-04-25] MEDS: POLYETHYLENE GLYCOL 3350 17 GM POWDER PO SCH (18:30)
[2019-04-25] MEDS: SODIUM CHLORIDE 0.45% 1000 ML 1,000 ML IV SCH (21:28)
[2019-04-25] MEDS: PIPERACIL/TAZOBACTA 4.5/NS 100 4.5 GM/100 ML VIAL IV SCH (21:28)
[2019-04-25] MEDS: PE/MO/PET,WH 10 APPLIC/28 GM TUBE PR PRN (21:29)
[2019-04-25] MEDS: metroNIDAZOLE/NS 500 MG/100 ML 500 MG/100 ML BAG IV SCH (22:17)
[2019-04-25] MEDS: ACETAMINOPHEN 325 MG TAB PO PRN (22:18)
[2019-04-25] MEDS: DOCUSATE SODIUM 100 MG CAP PO SCH (22:18)
[2019-04-25] MEDS: ALPRAZolam 0.5 MG TAB PO SCH (22:18)
[2019-04-26] MEDS ORDERED: MORPHINE 2 MG/1 ML INJ IV ONE (02:37)
[2019-04-26 07:47] LABS: Basophils % (Auto) 0.5 % (0.0-1.8); Eosinophils # (Auto) 0.1 K/mm3 (0.0-0.4); Eosinophils % (Auto) 1.8 % (0.0-4.3); Hematocrit 31.2 % (30.3-42.9); Hemoglobin 10.4 gm/dl (10.1-14.3); Lymphocytes # (Auto) 1.5 K/mm3 (1.2-5.4); Lymphocytes % (Auto) 25.4 % (13.4-35.0); Mean Corpuscular HGB Conc 33 % (30-34); Mean Corpuscular Volume 80 fl (79-97); Monocytes # (Auto) 0.4 K/mm3 (0.0-0.8); Monocytes % (Auto) 6.6 % (0.0-7.3); Platelet Count 435 K/mm3 (140-440); Red Blood Count 3.88 M/mm3 (3.65-5.03); Red Cell Distribution Width 15.5 % (13.2-15.2)
[2019-04-26 08:11] LABS: Alanine Aminotransferase 11 units/L (7-56); BUN/Creatinine Ratio 23; Blood Urea Nitrogen 9 mg/dL (7-17); Calcium 8.7 mg/dL (8.4-10.2); Hemolysis Index 0
[2019-04-26] MEDS: DOCUSATE SODIUM 100 MG CAP PO SCH ×2 (10:56→21:35)
[2019-04-26] MEDS: POLYETHYLENE GLYCOL 3350 17 GM POWDER PO SCH (10:56)
[2019-04-26] MEDS: ALPRAZolam 0.5 MG TAB PO SCH ×2 (11:02→21:36)
[2019-04-26] MEDS: metroNIDAZOLE/NS 500 MG/100 ML 500 MG/100 ML BAG IV SCH (11:04)
[2019-04-26] MEDS: PIPERACIL/TAZOBACTA 4.5/NS 100 4.5 GM/100 ML VIAL IV SCH ×3 (11:05→23:57)
[2019-04-26] MEDS: PE/MO/PET,WH 10 APPLIC/28 GM TUBE PR PRN (11:13)
--- NOTE | 2019-04-26 12:12 | Progress Note ---
Assessment and Plan Assessment and plan: 38 YO Female with Obesity, HTN , Hemorrhoids, Anxiety presents to ED for evaluation. Pt states that she has experienced pain in her abdomen over the past 10days. Pt states that pain is 5/10, localized to the right side of her abdomen, worsened with ambulation/movement, relieved with rest. Pt is POD #10 S/P emergency secondary to intera utrine Demise on Apr 15 presents. Pt states that her pain has become progressively worse with increasing frequency over the past 3-4 days. Pt acknowledges vaginal bleeding with saturation of 1 pad daily. Pt transported to [facility] via private vehicle. pt seen and evaluated in ED and found to have Intraabdominal abscess. Pt initiated on IV antibiotic therapy, Surgery team consulted in ED. IR team consulted in ED. Pt denies fever, chills, CP, Palpitations, Trauma, Productive cough, unintentional weight loss, ingestion of food/water from new/different sources, or recent ill contacts. No prior admission for review. All listed medication reconciled at time of admission. - Patient Problems (1) Intra-abdominal abscess Current Visit: Yes Status: Acute Plan to address problem: IV antibiotic therapy, CT ABdomen/Pelvis, Surgery team input noted, IR team consulted, serial abdominal exam, (2) Anxiety Current Visit: Yes Status: Acute Plan to address problem: Xanax BID/Prn, supportive care. (3) Hemorrhoid Current Visit: Yes Status: Acute Qualifiers: Hemorrhoid type: unspecified Qualified Code(s): K64.9 - Unspecified hemorrhoids Plan to address problem: hemorrhoid cream, supportive care. (4) DVT prophylaxis Current Visit: Yes Status: Acute Plan to address problem: SCD to BLE while in bed, Pt ambulatory Dispostion: Based on IR recommendation. History Interval history: patient seen and examined, followed up for abdominal pain, and noted to have intra-abdominal precolonic abscess, Reports improvement in pain, No draiange from site. Awaiting IR. No further complaint noted Hospitalist Physical - Constitutional Vitals: Temp Pulse Resp BP Pulse Ox 98.5 F 60 16 111/69 97 04/26/19 09:02 04/26/19 09:02 04/26/19 09:02 04/26/19 09:02 04/26/19 09:02 General appearance: Present: no acute distress, other - EENT Eyes: Present: PERRL, EOM intact ENT: hearing intact, clear oral mucosa - Neck Neck: Present: supple, normal ROM - Respiratory Respiratory effort: normal Respiratory: bilateral: CTA - Cardiovascular Rhythm: regular Heart Sounds: Present: S1 & S2. Absent: systolic murmur - Extremities Extremities: no ischemia, pulses intact, pulses symmetrical, No edema, normal temperature, normal color, Full ROM Peripheral Pulses: within normal limits - Abdominal General gastrointestinal: soft, tender, non-distended, normal bowel sounds Localized gastrointestinal: tender: RLQ - Integumentary Integumentary: Present: clear, warm, dry - Psychiatric Psychiatric: appropriate mood/affect, intact judgment & insight, memory intact - Neurologic Neurologic: CNII-XII intact, moves all extremities - Allied Health Allied health notes reviewed: nursing, social work Results - Labs CBC & Chem 7: 04/26/19 06:35 04/26/19 06:35 Labs: Laboratory Last Values WBC 6.0 K/mm3 (4.5-11.0) 04/26/19 06:35 RBC 3.88 M/mm3 (3.65-5.03) 04/26/19 06:35 Hgb 10.4 gm/dl (10.1-14.3) 04/26/19 06:35 Hct 31.2 % (30.3-42.9) 04/26/19 06:35 MCV 80 fl (79-97) 04/26/19 06:35 MCH 27 pg (28-32) L 04/26/19 06:35 MCHC 33 % (30-34) 04/26/19 06:35 RDW 15.5 % (13.2-15.2) H 04/26/19 06:35 Plt Count 435 K/mm3 (140-440) 04/26/19 06:35 Lymph % (Auto) 25.4 % (13.4-35.0) 04/26/19 06:35 [place] % (Auto) 6.6 % (0.0-7.3) 04/26/19 06:35 Eos % (Auto) 1.8 % (0.0-4.3) 04/26/19 06:35 Baso % (Auto) 0.5 % (0.0-1.8) 04/26/19 06:35 Lymph # 1.5 K/mm3 (1.2-5.4) 04/26/19 06:35 [place] # 0.4 K/mm3 (0.0-0.8) 04/26/19 06:35 Eos # 0.1 K/mm3 (0.0-0.4) 04/26/19 06:35 Baso # 0.0 K/mm3 (0.0-0.1) 04/26/19 06:35 Seg Neutrophils % 65.7 % (40.0-70.0) 04/26/19 06:35 Seg Neutrophils # 4.0 K/mm3 (1.8-7.7) 04/26/19 06:35 PT 13.5 Sec. (12.2-14.9) 04/25/19 10:21 INR 1.04 (0.87-1.13) 04/25/19 10:21 APTT 25.7 Sec. (24.2-36.6) 04/25/19 10:21 Sodium 142 mmol/L (137-145) 04/26/19 06:35 Potassium 4.2 mmol/L (3.6-5.0) 04/26/19 06:35 Chloride 105.3 mmol/L (98-107) 04/26/19 06:35 Carbon Dioxide 22 mmol/L (22-30) 04/26/19 06:35 Anion Gap 19 mmol/L 04/26/19 06:35 BUN 9 mg/dL (7-17) 04/26/19 06:35 Creatinine 0.4 mg/dL (0.7-1.2) L 04/26/19 06:35 Estimated GFR > 60 ml/min 04/26/19 06:35 BUN/Creatinine Ratio 23 % 04/26/19 06:35 Glucose 77 mg/dL (65-100) 04/26/19 06:35 Calcium 8.7 mg/dL (8.4-10.2) 04/26/19 06:35 Total Bilirubin < 0.20 mg/dL (0.1-1.2) 04/26/19 06:35 AST 11 units/L (5-40) 04/26/19 06:35 ALT 11 units/L (7-56) 04/26/19 06:35 Alkaline Phosphatase 87 units/L (35-129) 04/26/19 06:35 Troponin T < 0.010 ng/mL (0.00-0.029) 04/25/19 13:41 Total Protein 5.8 g/dL (6.3-8.2) L 04/26/19 06:35 Albumin 3.0 g/dL (3.9-5) L 04/26/19 06:35 Albumin/Globulin Ratio 1.1 % 04/26/19 06:35 Urine Color Straw (Yellow) 04/25/19 10:40 Urine Turbidity Clear (Clear) 04/25/19 10:40 Urine pH 8.0 (5.0-7.0) H 04/25/19 10:40 Ur Specific [place] 1.011 (1.003-1.030) 04/25/19 10:40 Urine Protein <15 mg/dl mg/dL (Negative) 04/25/19 10:40 Urine Glucose (UA) Neg mg/dL (Negative) 04/25/19 10:40 Urine Ketones Neg mg/dL (Negative) 04/25/19 10:40 Urine Blood Lg (Negative) 04/25/19 10:40 Urine Nitrite Neg (Negative) 04/25/19 10:40 Urine Bilirubin Neg (Negative) 04/25/19 10:40 Urine Urobilinogen < 2.0 mg/dL (<2.0) 04/25/19 10:40 Ur Leukocyte Esterase Neg (Negative) 04/25/19 10:40 Urine WBC (Auto) 5.0 /HPF (0.0-6.0) 04/25/19 10:40 Urine RBC (Auto) 1.0 /HPF (0.0-6.0) 04/25/19 10:40 U Epithel Cells (Auto) 3.0 /HPF (0-13.0) 04/25/19 10:40 Urine Mucus Few /HPF 04/25/19 10:40 Active Medications - Current Medications Current Medications: Generic Name Dose Route Start Last Admin Trade Name Freq PRN Reason Stop Dose Admin Acetaminophen 650 mg 04/25/19 14:13 04/25/19 22:18 Tylenol PO 650 mg Q4H PRN Administration Pain MILD(1-3)/Fever >100.5/WILLIS Albuterol 2.5 mg 04/25/19 14:13 Proventil IH Q4HRT PRN Shortness Of Breath Alprazolam 0.5 mg 04/25/19 22:00 04/26/19 11:02 Xanax PO 0.5 mg Q12HR GUILLE Administration Bisacodyl 10 mg 04/26/19 12:00 Dulcolax IN QDAY PRN Constipation Docusate Sodium 100 mg 04/25/19 22:00 04/26/19 10:56 Colace PO 100 mg BID GUILLE Administration Sodium Chloride 1,000 mls @ 125 mls/hr 04/25/19 15:00 04/25/19 21:28 Nacl 0.45% 1000 Ml IV 125 mls/hr DIRECT GUILLE Administration Piperacillin Sod/Tazobactam Sod 4.5 gm in 100 mls @ 200 mls/hr 04/25/19 22:00 04/26/19 11:05 Zosyn/Ns 4.5gm/100ml IV 200 mls/hr Q8HR GUILLE Administration Protocol Ondansetron HCl 4 mg 04/25/19 14:13 Zofran IV Q8H PRN Nausea And Vomiting Phenyleph/Shark Oil/Min Oil/Petrol 1 applic 04/25/19 16:25 04/26/19 11:13 Preparation H IN 1 applic Q6HR PRN Administration Hemorrhoids Polyethylene Glycol 17 gm 04/25/19 17:00 04/26/19 10:56 Miralax 3350 PO 17 gm QDAY GUILLE Administration Sodium Chloride 10 ml 04/25/19 22:00 04/26/19 11:05 Sodium Chloride Flush Syringe 10 Ml IV 10 ml BID GUILLE Administration Sodium Chloride 10 ml 04/25/19 14:13 Sodium Chloride Flush Syringe 10 Ml IV PRN PRN LINE FLUSH
[2019-04-26] MEDS ORDERED: fentaNYL 100 MCG/2 ML INJ IV ONE ×2 (13:10→14:30)
[2019-04-26] MEDS ORDERED: MIDAZOLAM 5 MG/5 ML INJ MDV IV ONE ×2 (13:10→13:18)
[2019-04-26] MEDS ORDERED: fentaNYL 100 MCG/2 ML INJ ONE ×2 (13:18→14:13)
[2019-04-26] MEDS ORDERED: LIDOCAINE 1%/EPINEPHRINE 1:100,000 VIAL (20 ML) INFILTRATI ONE (13:25)
--- NOTE | 2019-04-26 15:27 | Post Operative Note ---
Date of procedure: 04/26/19 Pre-op diagnosis: Fluid collection in abdomen Post-op diagnosis: same Findings: 1-2 mL of serous fluid aspirated from the focal collection - the collection was accessed 3 times to attempt to drain more material for analysis - sent for culture Procedure: CT guided placement of an 18 gauge needle with aspiration in the abdominal fluid collection Attempted placement of an 8 Fr drain into the collection, but inability to pass drain over the wire due to small size of collection Anesthesia: local (w/ conscious sedation) Surgeon: YOON PARMAR Estimated blood loss: none Specimen disposition: to lab Condition: stable Disposition: floor
--- NOTE | 2019-04-26 15:28 | Progress Note ---
Assessment and Plan 38 yo F with pericolonic (cecum) abscess of unknown etiology Plan: 1. continue abx 2. follow up cultures from Ct guided aspiration 3. prn pain control 4. ok for soft diet 5. sitz baths, preparation H for hemorrhoids, bowel regimen No acute surgical intervention Thank you, please call with questions. Subjective Date of service: 04/26/19 Narrative: Pt seen and examined. No acute complaints. S/p aspiration of RLQ fluid collection. Drain unable to be placed due to small size of collection. No f/c. Had one BM. Objective Vital Signs - 12hr 04/26/19 04/26/19 04/26/19 03:34 09:02 12:28 Temperature 98.1 F 98.5 F Pulse Rate 57 L 60 Pulse Rate [ Intra-Procedure ] Pulse Rate [ Post-Procedure] Respiratory 16 16 Rate Respiratory Rate [Intra- Procedure] Respiratory Rate [Post- Procedure] Blood Pressure 99/67 111/69 Blood Pressure [Intra- Procedure] Blood Pressure [Post-Procedure ] O2 Sat by Pulse 99 97 98 Oximetry O2 Sat by Pulse Oximetry [ Intra-Procedure ] O2 Sat by Pulse Oximetry [Post -Procedure] 04/26/19 04/26/19 04/26/19 13:53 14:07 14:13 Temperature Pulse Rate Pulse Rate [ 65 71 74 Intra-Procedure ] Pulse Rate [ Post-Procedure] Respiratory Rate Respiratory 20 18 16 Rate [Intra- Procedure] Respiratory Rate [Post- Procedure] Blood Pressure Blood Pressure 135/74 125/75 122/70 [Intra- Procedure] Blood Pressure [Post-Procedure ] O2 Sat by Pulse Oximetry O2 Sat by Pulse 99 99 98 Oximetry [ Intra-Procedure ] O2 Sat by Pulse Oximetry [Post -Procedure] 04/26/19 04/26/19 04/26/19 14:16 14:21 14:26 Temperature Pulse Rate Pulse Rate [ 73 75 84 Intra-Procedure ] Pulse Rate [ Post-Procedure] Respiratory Rate Respiratory 16 18 20 Rate [Intra- Procedure] Respiratory Rate [Post- Procedure] Blood Pressure Blood Pressure 125/68 116/75 121/70 [Intra- Procedure] Blood Pressure [Post-Procedure ] O2 Sat by Pulse Oximetry O2 Sat by Pulse 97 98 97 Oximetry [ Intra-Procedure ] O2 Sat by Pulse Oximetry [Post -Procedure] 11/13/19 11/13/19 14:41 14:46 Temperature Pulse Rate Pulse Rate [ Intra-Procedure ] Pulse Rate [ 76 82 Post-Procedure] Respiratory Rate Respiratory Rate [Intra- Procedure] Respiratory 20 20 Rate [Post- Procedure] Blood Pressure Blood Pressure [Intra- Procedure] Blood Pressure 114/64 120/75 [Post-Procedure ] O2 Sat by Pulse Oximetry O2 Sat by Pulse Oximetry [ Intra-Procedure ] O2 Sat by Pulse 97 97 Oximetry [Post -Procedure] - General physical appearance Narrative Exam: Gen: AAOx3. NAD CV: S1, S2+ resp: even and unlabored Abd: soft, NT, ND. RLQ dressing c/d/i Ext: no c/c/e - Labs 04/26/19 06:35 04/26/19 06:35 Diabetes panel 04/26/19 Range/Units 06:35 Sodium 142 (137-145) mmol/L Potassium 4.2 (3.6-5.0) mmol/L Chloride 105.3 (98-107) mmol/L Carbon Dioxide 22 (22-30) mmol/L BUN 9 (7-17) mg/dL Creatinine 0.4 L (0.7-1.2) mg/dL Glucose 77 (65-100) mg/dL Calcium 8.7 (8.4-10.2) mg/dL AST 11 (5-40) units/L ALT 11 (7-56) units/L Alkaline Phosphatase 87 (35-129) units/L Total Protein 5.8 L (6.3-8.2) g/dL Albumin 3.0 L (3.9-5) g/dL Calcium panel 04/26/19 Range/Units 06:35 Calcium 8.7 (8.4-10.2) mg/dL Albumin 3.0 L (3.9-5) g/dL Pituitary panel 04/26/19 Range/Units 06:35 Sodium 142 (137-145) mmol/L Potassium 4.2 (3.6-5.0) mmol/L Chloride 105.3 (98-107) mmol/L Carbon Dioxide 22 (22-30) mmol/L BUN 9 (7-17) mg/dL Creatinine 0.4 L (0.7-1.2) mg/dL Glucose 77 (65-100) mg/dL Calcium 8.7 (8.4-10.2) mg/dL Adrenal panel 04/26/19 Range/Units 06:35 Sodium 142 (137-145) mmol/L Potassium 4.2 (3.6-5.0) mmol/L Chloride 105.3 (98-107) mmol/L Carbon Dioxide 22 (22-30) mmol/L BUN 9 (7-17) mg/dL Creatinine 0.4 L (0.7-1.2) mg/dL Glucose 77 (65-100) mg/dL Calcium 8.7 (8.4-10.2) mg/dL Total Bilirubin < 0.20 (0.1-1.2) mg/dL AST 11 (5-40) units/L ALT 11 (7-56) units/L Alkaline Phosphatase 87 (35-129) units/L Total Protein 5.8 L (6.3-8.2) g/dL Albumin 3.0 L (3.9-5) g/dL
--- NOTE | 2019-04-26 17:51 | Consultation ---
History of Present Illness Consult date: 04/26/19 Requesting physician: BEBE LAZCANO Reason for consult: other (abdominal pain after c/s) History of present illness: Pt present to ER c/o abdominal pain. She is s/p c/s on 04/15/19 at [facility]. She was initially scheduled to have the section due to brain abnormality and concern about head being able to deliver vaginally but presented in labor with meconium present. Upon arrival was diagnosed with IUFD. She has section that was not emergent or stat and was put to sleep due to not wanting to hear the activity of the baby being born . She has been diagnosed with a pericolonic/cecum abscess on this admission and has had CT guided drainage by IR today. 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 She does c/o having some depression and a nxiety due to the circumstances of her delivery and does request to speak to psych provider. Past History Past Medical History: no pertinent history Past Surgical History: no surgical history Social history: no significant social history - Obstetrical History : 6 Para: 6 Number of Living Children: 5 Medications and Allergies Allergies Allergy/AdvReac Type Severity Reaction Status Date / Time No Known Allergies Allergy Verified 01/13/18 13:13 Home Medications Medication Instructions Recorded Confirmed Last Taken Type Ibuprofen [Motrin 800 MG tab] 800 mg PO Q8HR PRN #30 tablet 07/23/17 04/26/19 2 Days Ago Rx ~04/24/19 Lidocain2.5%/Prilocai2.5% [Emla] 5 gm TP ONCE PRN #1 tube 07/23/17 04/26/19 2 Days Ago Rx ~04/24/19 Butalb/Acetaminophen/Caffeine 1 cap PO Q8HR PRN #12 cap 04/20/19 04/26/19 2 Days Ago Rx [Fioricet 50-300-40 mg CAP] ~04/24/19 Active Meds: Active Medications Acetaminophen (Tylenol) 650 mg PO Q4H PRN PRN Reason: Pain MILD(1-3)/Fever >100.5/WILLIS Last Admin: 04/25/19 22:18 Dose: 650 mg Documented by: Albuterol (Proventil) 2.5 mg IH Q4HRT PRN PRN Reason: Shortness Of Breath Alprazolam (Xanax) 0.5 mg PO Q12HR [facility] Last Admin: 04/26/19 11:02 Dose: 0.5 mg Documented by: Bisacodyl (Dulcolax) 10 mg ND QDAY PRN PRN Reason: Constipation Docusate Sodium (Colace) 100 mg PO BID [facility] Last Admin: 04/26/19 10:56 Dose: 100 mg Documented by: Sodium Chloride (Nacl 0.45% 1000 Ml) 1,000 mls @ 125 mls/hr IV DIRECT [facility] Last Admin: 04/25/19 21:28 Dose: 125 mls/hr Documented by: Piperacillin Sod/Tazobactam Sod (Zosyn/Ns 4.5gm/100ml) 4.5 gm in 100 mls @ 200 mls/hr IV Q8HR [facility]; Protocol Last Admin: 04/26/19 11:05 Dose: 200 mls/hr Documented by: Ondansetron HCl (Zofran) 4 mg IV Q8H PRN PRN Reason: Nausea And Vomiting Phenyleph/Shark Oil/Min Oil/Petrol (Preparation H) 1 applic ND Q6HR PRN PRN Reason: Hemorrhoids Last Admin: 04/26/19 11:13 Dose: 1 applic Documented by: Polyethylene Glycol (Miralax 3350) 17 gm PO QDAY [facility] Last Admin: 04/26/19 10:56 Dose: 17 gm Documented by: Sodium Chloride (Sodium Chloride Flush Syringe 10 Ml) 10 ml IV BID [facility] Last Admin: 04/26/19 11:05 Dose: 10 ml Documented by: Sodium Chloride (Sodium Chloride Flush Syringe 10 Ml) 10 ml IV PRN PRN PRN Reason: LINE FLUSH Review of Systems All systems: negative - Vital Signs Vital signs: Vital Signs Temp Pulse Resp BP Pulse Ox 99.1 F 80 16 122/85 99 04/25/19 08:53 04/25/19 08:53 04/25/19 08:53 04/25/19 08:53 04/25/19 08:53 Temp Pulse Resp BP Pulse Ox 98.5 F 82 20 120/75 97 04/26/19 09:02 04/26/19 14:46 04/26/19 14:46 04/26/19 14:46 04/26/19 14:46 - Physical Exam Lungs: Positive: Normal air movement Abdomen: Positive: normal appearance, soft. 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
[2019-04-26] MEDS: SODIUM CHLORIDE 0.45% 1000 ML 1,000 ML IV SCH (20:44)
[2019-04-26] MEDS: ACETAMINOPHEN 325 MG TAB PO PRN (21:43)
[2019-04-27] MEDS: SODIUM CHLORIDE 0.45% 1000 ML 1,000 ML IV SCH (05:27)
[2019-04-27] MEDS: PIPERACIL/TAZOBACTA 4.5/NS 100 4.5 GM/100 ML VIAL IV SCH ×2 (06:23→13:36)
[2019-04-27] MEDS: ACETAMINOPHEN 325 MG TAB PO PRN ×2 (06:26→16:38)
[2019-04-27] MEDS: POLYETHYLENE GLYCOL 3350 17 GM POWDER PO SCH (10:46)
[2019-04-27] MEDS: DOCUSATE SODIUM 100 MG CAP PO SCH (10:46)
[2019-04-27] MEDS: ALPRAZolam 0.5 MG TAB PO SCH (10:47)
--- NOTE | 2019-04-27 11:35 | Discharge Summary ---
Providers - Providers Date of Admission: 04/25/19 14:13 Attending physician: BEBE LAZCANO MD 04/25/19 14:14 Consult to Physician [CONS] Routine Comment: DR BLANCO MARCUS W/DR MULLER @[id number] Consulting Provider: JOANNE MULLER Physician Instructions: Reason For Exam: intra-abdominal abscess 04/25/19 14:51 Consult to Interventional Radiology [CONS] Routine Consulting Provider: YOON RICHARDSON Reason For Exam: pericolonic abscess, please eval for drainage Place consult to:: vascular Notified:: yes 04/26/19 08:59 Consult to Physician [CONS] Routine Comment: Consulting Provider: BEREKET JURADO Physician Instructions: Reason For Exam: abdominal pain s/p 04/26/19 18:11 Consult to Mental Health [CONS] Routine Reason For Exam: deperssion& anxiety after demise Place consult to:: mental health provider Notified:: yes Phone number called:: [phone] Was contact made?: Yes If yes, spoke with:: francisco Time called:: 18:32 Hospitalization Reason for admission: abdominal pain Condition: Stable Hospital course: 38 YO Female with Obesity, HTN , Hemorrhoids, Anxiety presents to ED for evaluation. Pt states that she has experienced pain in her abdomen over the past 10days. Pt states that pain is 5/10, localized to the right side of her abdomen, worsened with ambulation/movement, relieved with rest. Pt is POD #10 S/P emergency secondary to intera utrine Demise on Apr 15 presents. Pt states that her pain has become progressively worse with increasing frequency over the past 3-4 days. Pt acknowledges vaginal bleeding with saturation of 1 pad daily. Pt transported to [facility] via private vehicle. pt seen and evaluated in ED and found to have Intraabdominal abscess. Pt initiated on IV antibiotic therapy, Surgery team consulted in ED. IR team consulted in ED. Pt denies fever, chills, CP, Palpitations, Trauma, Productive cough, unintentional weight loss, ingestion of food/water from new/different sources, or recent ill contacts. No prior admission for review. All listed medication reconciled at time of admission. * IR did culture aspiration which was negative * she was also seen by [employer] and outpatient eval recommended. * she is stable for discharge at this time, although abodominal pain still persist, the intensity is well decreased. (1) Intra-abdominal abscess Current Visit: Yes Status: Acute Plan to address problem: IV antibiotic therapy, CT ABdomen/Pelvis, Surgery team input noted, IR team consulted, serial abdominal exam, Surgery evaluated the patient and recommended 1. abx - may transition to PO augmentin x7 days on dc 2. follow up cultures from Ct guided aspiration - no growth x24 hours, will follow up final as outpatient. 3. prn pain control 4. sitz baths, preparation H for hemorrhoids, bowel regimen - will give MOM x2 doses. Pt instructed to continue bowel regimen and OTC meds for hemorrhoids as outpatient (2) Anxiety Current Visit: Yes Status: Acute Plan to address problem: Xanax BID/Prn, supportive care. (3) Hemorrhoid Current Visit: Yes Status: Acute Qualifiers: Hemorrhoid type: unspecified Qualified Code(s): K64.9 - Unspecified hemorrhoids Plan to address problem: hemorrhoid cream, supportive care. Disposition: DC- TO HOME OR SELFCARE Time spent for discharge: 35 mins Core Measure Documentation - Palliative Care Palliative Care/ Comfort Measures: Not Applicable - Core Measures Any of the following diagnoses?: none Exam - Physical Exam Narrative exam: General appearance: Present: no acute distress, other - EENT Eyes: Present: PERRL, EOM intact ENT: hearing intact, clear oral mucosa - Neck Neck: Present: supple, normal ROM - Respiratory Respiratory effort: normal Respiratory: bilateral: CTA - Cardiovascular Rhythm: regular Heart Sounds: Present: S1 & S2. Absent: systolic murmur - Extremities Extremities: no ischemia, pulses intact, pulses symmetrical, No edema, normal temperature, normal color, Full ROM Peripheral Pulses: within normal limits - Abdominal General gastrointestinal: soft, tender, non-distended, normal bowel sounds Localized gastrointestinal: tender: RLQ - Integumentary Integumentary: Present: clear, warm, dry - Psychiatric Psychiatric: appropriate mood/affect, intact judgment & insight, memory intact - Neurologic Neurologic: CNII-XII intact, moves all extremities - Allied Health Allied health notes reviewed: nursing, social work - Constitutional Vitals: Temp Pulse Resp BP Pulse Ox 98.2 F 55 L 16 111/70 93 04/27/19 03:22 04/27/19 08:00 04/27/19 03:22 04/27/19 03:22 04/27/19 03:22 Plan Activity: advance as tolerated, fall precautions Diet: low fat Special Instructions: record daily BP diary Follow up with: YADIRA ROSAROI [Other] - 3-5 Days BEREKET JURADO MD [Staff Physician] - 7 Days ROBERT MERCADO MD [Staff Physician] - 7 Days [facility] [Outside] - 7 Days Prescriptions: Amoxicillin/Potassium Clav [Augmentin 875-125 Tablet] 1 each PO BID #14 tablet
--- NOTE | 2019-04-27 11:35 | Progress Note ---
Assessment and Plan 38 yo F with pericolonic (cecum) abscess of unknown etiology s/p CT guided aspiration Plan: 1. abx - may transition to PO augmentin x7 days on dc 2. follow up cultures from Ct guided aspiration - no growth x24 hours, will follow up final as outpatient. 3. prn pain control 4. ok for soft diet 5. sitz baths, preparation H for hemorrhoids, bowel regimen - will give MOM x2 doses. Pt instructed to continue bowel regimen and OTC meds for hemorrhoids as outpatient No acute surgical intervention. OK to dc from surgery standpoint. Will s/o D/W Dr. Steele. Thank you, please call with questions. Subjective Date of service: 04/27/19 Narrative: Pt seen and examined. c/o mild pain at RLQ puncture site. No f/c. Tolerating full liquids. No further BMs. Objective Vital Signs - 12hr 04/27/19 04/27/19 03:22 08:00 Temperature 98.2 F Pulse Rate 55 L 55 L Respiratory 16 Rate Blood Pressure 111/70 O2 Sat by Pulse 93 Oximetry - General physical appearance Narrative Exam: Gen: AAOx3. NAD CV: s1, S2+ Resp: even and unlabored Abd: soft, NT, ND. Ext: no c/c/e - Labs 04/26/19 06:35 04/26/19 06:35
[2019-04-27 12:18] VITALS: BP 106/71
[2019-04-27] MEDS: MAGNESIUM HYDROXIDE (MOM) ORAL LIQD UDC PO SCH ×2 (12:28→16:17)
--- NOTE | 2019-04-27 14:24 | Progress Note ---
Assessment and Plan POD#12 s/p c/s, doing well - Patient Problems (1) Anxiety Current Visit: Yes Status: Acute Plan to address problem: OK for d/c if clear by psych. Subjective - Subjective Date of service: 04/27/19 Principal diagnosis: s/p C/S Patient reports: appetite normal Objective - Vital Signs Latest vital signs: Vital Signs Temp Pulse Pulse Pulse Resp Resp Resp 04/27/19 11:20 98.6 F 66 18 04/27/19 08:17 98.2 F 62 18 04/27/19 08:00 55 L 04/27/19 03:22 98.2 F 55 L 16 04/26/19 23:02 98.1 F 63 16 04/26/19 19:24 71 04/26/19 19:08 98.3 F 71 16 04/26/19 14:46 82 20 04/26/19 14:41 76 20 04/26/19 14:26 84 20 04/26/19 14:21 75 18 BP BP BP Pulse Ox Pulse Ox Pulse Ox 04/27/19 11:20 106/71 95 04/27/19 08:17 108/60 96 04/27/19 08:00 04/27/19 03:22 111/70 93 04/26/19 23:02 113/71 96 04/26/19 19:24 04/26/19 19:08 93/49 95 04/26/19 14:46 120/75 97 04/26/19 14:41 114/64 97 04/26/19 14:26 121/70 97 04/26/19 14:21 116/75 98 Intake and Output 04/26/19 04/27/19 04/27/19 22:59 06:59 14:59 Intake Total 220 1200 Balance 220 1200 Intake: IV 100 1200 NaCl 0.45% 1000 ml 1,000 1000 ml @ 125 mls/hr IV DIRECT [facility] Rx#:[id number] ZOSYN/NS 4.5GM/100ML 4.5 100 200 gm In 100 ml @ 200 mls/hr IV Q8HR [facility] Rx#: [id number] Oral 120 0 Other: Total, Intake Amount 120 0 Voiding Method Toilet # Voids Void 3 Weight 97.7 kg - Exam Breasts: Present: normal. Absent: engorged Abdomen: Present: normal appearance Extremities: Present: normal Incision: Present: normal, dry, intact
--- NOTE | 2019-04-27 17:05 | Consultation ---
History of Present Illness - Reason for Consult Consult date: 04/27/19 Reason for consult: Initial Psychiatric Evaluation - Chief Complaint Chief complaint: Unable to Assess. - History of Present Psychiatric Illness Provider unable to assess. At the time of the assessment patient was in the restroom. Provider was informed to return later by the male in patient's room. Medications and Allergies Allergies Allergy/AdvReac Type Severity Reaction Status Date / Time No Known Allergies Allergy Verified 01/13/18 13:13 Home Medications Medication Instructions Recorded Confirmed Last Taken Type Ibuprofen [Motrin 800 MG tab] 800 mg PO Q8HR PRN #30 tablet 07/23/17 04/26/19 2 Days Ago Rx ~04/24/19 Lidocain2.5%/Prilocai2.5% [Emla] 5 gm TP ONCE PRN #1 tube 07/23/17 04/26/19 2 Days Ago Rx ~04/24/19 Butalb/Acetaminophen/Caffeine 1 cap PO Q8HR PRN #12 cap 04/20/19 04/26/19 2 Days Ago Rx [Fioricet 50-300-40 mg CAP] ~04/24/19 Amoxicillin/Potassium Clav 1 each PO BID #14 tablet 04/27/19 Unknown Rx [Augmentin 875-125 Tablet] Active Meds: Active Medications Acetaminophen (Tylenol) 650 mg PO Q4H PRN PRN Reason: Pain MILD(1-3)/Fever >100.5/WILLIS Last Admin: 04/27/19 16:38 Dose: 650 mg Documented by: Albuterol (Proventil) 2.5 mg IH Q4HRT PRN PRN Reason: Shortness Of Breath Alprazolam (Xanax) 0.5 mg PO Q12HR [facility] Last Admin: 04/27/19 10:47 Dose: Not Given Documented by: Bisacodyl (Dulcolax) 10 mg [place] QDAY PRN PRN Reason: Constipation Docusate Sodium (Colace) 100 mg PO BID [facility] Last Admin: 04/27/19 10:46 Dose: 100 mg Documented by: Sodium Chloride (Nacl 0.45% 1000 Ml) 1,000 mls @ 125 mls/hr IV DIRECT [facility] Last Admin: 04/27/19 05:27 Dose: 125 mls/hr Documented by: Piperacillin Sod/Tazobactam Sod (Zosyn/Ns 4.5gm/100ml) 4.5 gm in 100 mls @ 200 mls/hr IV Q8HR [facility]; Protocol Last Admin: 04/27/19 13:36 Dose: 200 mls/hr Documented by: Ondansetron HCl (Zofran) 4 mg IV Q8H PRN PRN Reason: Nausea And Vomiting Phenyleph/Shark Oil/Min Oil/Petrol (Preparation H) 1 applic NJ Q6HR PRN PRN Reason: Hemorrhoids Last Admin: 04/26/19 11:13 Dose: 1 applic Documented by: Polyethylene Glycol (Miralax 3350) 17 gm PO QDAY [facility] Last Admin: 04/27/19 10:46 Dose: 17 gm Documented by: Sodium Chloride (Sodium Chloride Flush Syringe 10 Ml) 10 ml IV BID [facility] Last Admin: 04/27/19 10:47 Dose: 10 ml Documented by: Sodium Chloride (Sodium Chloride Flush Syringe 10 Ml) 10 ml IV PRN PRN PRN Reason: LINE FLUSH Mental Status Exam - Vital signs Last Vital Signs Temp 98.6 F 04/27/19 11:20 Pulse 66 04/27/19 11:20 Resp 18 04/27/19 11:20 BP 106/71 04/27/19 11:20 Pulse Ox 95 04/27/19 11:20 Results Result Diagrams: 04/26/19 06:35 04/26/19 06:35 All other labs normal. Assessment and Plan Assessment and plan: Will reassess in 24 hours.
--- NOTE | 2019-05-09 14:35 | Cat Scan Report ---
EXAM: CT guided right upper quadrant aspiration CLINICAL INDICATION: Right upper quadrant fluid collection DATE: 04/26/19 CATALOGUE LIBRARIAN: YOON PARMAR MD MEDICATIONS: Conscious sedation using Versed and fentanyl was performed under guidance of radiologic nursing. Continuous cardiopulmonary monitoring was utilized. PROCEDURE: Following an explanation of the risks, benefits and alternatives; written informed consent was obtained. The patient was brought to the CT suite and placed in the supine position on the CT table. Surg Rn CT was performed of the abdomen. After determining the appropriate site, the skin was infiltrated with lidocaine and a finder needle was placed. Intermittent CT was performed until the desired position was identified. The 18 gauge trocar needle was inserted into the small right upper quadrant fluid collection . Aspiration was performed and sent to the lab for analysis. A 0.035 inch wire was then passed into the collection and coiled into the collection. Attempt was made to pass a drain over the wire, but due to the small size of the collection and the increased soft tissue between the drain and the collection, the tube did not pass into the collection and was than removed. The patient tolerated the procedure well. There were no immediate postprocedural complications. FINDINGS: 1. Initial CT demonstrates a small fluid collection in the right upper quadrant. There is a satisfactory window for CT drainage. 2. Intermittent CT demonstrates the 18 gauge needle was placed and a small fluid collection in the right upper quadrant. 3. Final CT documents a small fluid collection in the right upper quadrant. 4. A total of a few milliliters of serous material was aspirated through the needle. IMPRESSION: Successful CT guided right upper quadrant aspiration. The collection was insufficient in size for percutaneous drain placement.
== END 2019-04-27 19:12 | disposition home or self-care (01) ==
LOC: ED 08:50 → 4A 14:13
PROVIDERS: ADMIT Internal Medicine; ATTEND Internal Medicine
DX: K65.1 Peritoneal abscess (principal); F41.9 Anxiety disorder, unspecified; K64.9 Unspecified hemorrhoids; I10 Essential (primary) hypertension
CPT/HCPCS: 10160; 36415; 71275; 74177; 77012; 80053; 81001; 84484; 85025; 85610; 85730; 87116; 93005; 93010; 96365; 96366; 96375; 96376; 99284; C1769; G0378; J2060; J2250; J2543; J3010; J7030; J2270

== ENCOUNTER 2019-05-11 22:53 | Emergency (ER) | payer OTHER ==
[2019-05-11 23:31] VITALS: BP 138/92
--- NOTE | 2019-05-12 02:56 | Emergency Department Report ---
ED General Adult HPI - General Chief complaint: Chest Pain Stated complaint: LEG/CHEST PAIN/HEADACHE Time Seen by Provider: 05/12/19 02:51 Source: patient Mode of arrival: Ambulatory Limitations: No Limitations - History of Present Illness Initial comments: 38 year old -[place] female who recently delivered on 05-02 and 9-month-old still baby. Patient delivered . Patient comes in for bilateral calf pain, chest pain and headache 2 days. Patient states that she's been taking her iron and Colace. Patient is currently on no control. She has not recently traveled outside the country in the last 2 weeks. Onset/Timin -: days(s) Location: head, chest, lower extremity Radiation: non-radiation Severity scale (0 -10): 6 Quality: aching Consistency: intermittent Improves with: none Worsens with: none Associated Symptoms: chest pain, headaches - Related Data Previous Rx's Medication Instructions Recorded Last Taken Type Ibuprofen [Motrin 800 MG tab] 800 mg PO Q8HR PRN #30 tablet 07/23/17 2 Days Ago Rx ~04/24/19 Lidocain2.5%/Prilocai2.5% [Emla] 5 gm TP ONCE PRN #1 tube 07/23/17 2 Days Ago Rx ~04/24/19 Butalb/Acetaminophen/Caffeine 1 cap PO Q8HR PRN #12 cap 04/20/19 2 Days Ago Rx [Fioricet 50-300-40 mg CAP] ~04/24/19 Amoxicillin/Potassium Clav 1 each PO BID #14 tablet 04/27/19 Unknown Rx [Augmentin 875-125 Tablet] Allergies Allergy/AdvReac Type Severity Reaction Status Date / Time No Known Allergies Allergy Verified 01/13/18 13:13 ED Review of Systems ROS: Stated complaint: LEG/CHEST PAIN/HEADACHE Other details as noted in HPI Comment: All other systems reviewed and negative ED Past Medical Hx - Past Medical History Hx Hypertension: Yes Hx CVA: No Hx Heart Attack/AMI: No Hx Congestive Heart Failure: No Hx Diabetes: No Hx Deep Vein Thrombosis: No Hx Pulmonary Embolism: No Hx GERD: No Hx Liver Disease: No Hx Renal Disease: No Hx Sickle Cell Disease: No Hx Arthritis: No Hx Headaches / Migraines: No Hx Seizures: No Hx Kidney Stones: No Hx Psychiatric Treatment: Yes (Anxiety) Hx Asthma: No Hx COPD: No Hx Tuberculosis: No Hx Dementia: No Hx HIV: No Additional medical history: Low Iron(anemia) - Surgical History Past Surgical History?: Yes Hx Coronary Stent: No Hx Open Heart Surgery: No Hx Pacemaker: No Hx Internal Defibrillator: No Hx Cholecystectomy: No Hx Appendectomy: No Hx Breast Surgery: No Additional Surgical History: x 1 - Social History Smoking Status: Never Smoker Substance Use Type: None - Medications Home Medications: Home Medications Medication Instructions Recorded Confirmed Last Taken Type Ibuprofen [Motrin 800 MG tab] 800 mg PO Q8HR PRN #30 tablet 07/23/17 04/26/19 2 Days Ago Rx ~04/24/19 Lidocain2.5%/Prilocai2.5% [Emla] 5 gm TP ONCE PRN #1 tube 07/23/17 04/26/19 2 Days Ago Rx ~04/24/19 Butalb/Acetaminophen/Caffeine 1 cap PO Q8HR PRN #12 cap 04/20/19 04/26/19 2 Days Ago Rx [Fioricet 50-300-40 mg CAP] ~04/24/19 Amoxicillin/Potassium Clav 1 each PO BID #14 tablet 04/27/19 Unknown Rx [Augmentin 875-125 Tablet] ED Physical Exam - General Limitations: No Limitations General appearance: alert, in no apparent distress - Head Head exam: Present: atraumatic, normocephalic ED Course Vital Signs 05/11/19 05/12/19 23:01 03:31 Temperature 98.2 F Pulse Rate 78 Respiratory 14 16 Rate Blood Pressure 138/92 O2 Sat by Pulse 98 Oximetry - Reevaluation(s) Reevaluation #1: 05/12/19 06:02 Reevaluation of patient she reports that she has been having more anxiety and feeling down denies any suicidal or homicidal but just feels like she is in a dark place since she has lost her baby. She reports she has not been referred to any grief counselor or mental health provider. ED Medical Decision Making - Lab Data Result diagrams: 05/12/19 03:02 05/12/19 03:02 - Radiology Data Radiology results: report reviewed Patient: LARA CARDENAS MR#: [id number] : 1980 Acct:[id number] Age/Sex: 38 / F ADM Date: 05/11/19 Loc: ED Attending Dr: Ordering Physician: GUERRERO ALANIS Date of Service: 05/12/19 Procedure(s): CT angio chest Accession Number(s): [id number] cc: GUERRERO ALANIS CTA CHEST WITH IV CONTRAST, 05/12/2019 INDICATION: Chest pain. Shortness of breath. TECHNIQUE: Axial CT images were obtained through the chest after injection of IV contrast. Coronal oblique 2- D reconstruction images were produced. 3 plane MIP reconstruction images were produced at an independent workstation. All CTs at this facility utilize dose reduction techniques including automated exposure control, iterative reconstruction and weight based dosing when appropriate to reduce patient radiation dose to as low as reasonable achievable. COMPARISON: CT angiogram of the chest, 04/25/2019 FINDINGS: No filling defects are visualized within the central or segmental pulmonary arteries to suggest pulmonary embolism. The heart is normal in size. The thoracic aorta is normal in caliber. Evaluation of the lung parenchyma demonstrates no focal airspace consolidation or pleural effusion. Limited imaging of the upper abdomen demonstrates no evidence of acute abnormality. There are bilateral renal cysts. Evaluation of bony structures demonstrates no evidence of acute bony abnormality. IMPRESSION: 1. No evidence of pulmonary embolism or acute parenchymal process. Signer Name: Floridalma Singh MD Signed: 05/12/2019 5:41 AM Workstation Name: [id number] Transcribed By: EB Dictated By: Floridalma Singh MD Electronically Authenticated By: Floridalma Singh MD Signed Date/Time: 05/12/19540 DD/ 5 TD/TT: - Medical Decision Making 38 year old -[place] female who recently delivered on 05-02 and 9-month-old still baby. Patient delivered . Patient comes in for bilateral calf pain, chest pain and headache 2 days. Patient states that she's been taking her iron and Colace. Patient is currently on no control. She has not recently traveled outside the country in the last 2 weeks. CTA negative for any pulmonary embolism. Patient was given ibuprofen. Patient referred to her OB provider. Critical care attestation.: If time is entered above; I have spent that time in minutes in the direct care of this critically ill patient, excluding procedure time. ED Disposition Clinical Impression: Anxiety, Grief associated with loss of fetus, Atypical chest pain Disposition: DC-01 TO HOME OR SELFCARE Is pt being admited?: No Does the pt Need Aspirin: No Condition: Stable Instructions: Chest Pain (ED), Depression (ED), Anxiety (ED), Grief and Loss (ED) Referrals: PRIMARY CARE, [Primary Care Provider] - 3-[address] [facility] [Outside] - 3-5 Days [facility] [Outside] - 3-5 Days
[2019-05-12] MEDS ORDERED: IBUPROFEN 600 MG TAB PO ONE (03:18)
--- NOTE | 2019-05-12 03:24 | XRay Report ---
CHEST 2 VIEWS, 05/12/2019 3:17 AM INDICATION: Chest pain COMPARISON: Chest radiograph, 08/15/2018 FINDINGS: Support devices: None Heart: The heart is normal in size. Lungs/pleura: The lungs are well expanded and appear clear of focal airspace disease or significant p leural effusion. Additional findings: Evaluation of bony structures demonstrates no evidence of acute bony abnormality . IMPRESSION: 1. No evidence of acute cardiopulmonary process. Signer Name: Floridalma Singh MD Signed: 05/12/2019 3:19 AM Workstation Name: [email or web address]
[2019-05-12 03:46] LABS: Basophils % (Auto) 0.4 % (0.0-1.8); Eosinophils # (Auto) 0.1 K/mm3 (0.0-0.4); Eosinophils % (Auto) 1.2 % (0.0-4.3); Hematocrit 31.8 % (30.3-42.9); Hemoglobin 10.4 gm/dl (10.1-14.3); Lymphocytes # (Auto) 1.7 K/mm3 (1.2-5.4); Lymphocytes % (Auto) 29.1 % (13.4-35.0); Mean Corpuscular HGB Conc 33 % (30-34); Mean Corpuscular Volume 80 fl (79-97); Monocytes # (Auto) 0.5 K/mm3 (0.0-0.8); Monocytes % (Auto) 7.6 % (0.0-7.3); Platelet Count 331 K/mm3 (140-440); Red Blood Count 3.96 M/mm3 (3.65-5.03); Red Cell Distribution Width 15.4 % (13.2-15.2)
[2019-05-12 03:56] LABS: Bilirubin,Urine NEG (Negative); Blood,Urine NEG (Negative); Color,Urine Straw (Yellow); Mucus,Urine FEW /HPF; Protein,Urine <15 mg/dL mg/dL (Negative); Urobilinogen,Urine < 2.0 mg/dL (<2.0)
[2019-05-12 03:56] LABS: Alanine Aminotransferase 10 units/L (7-56); Albumin 3.6 g/dL (3.9-5); BUN/Creatinine Ratio 20; Blood Urea Nitrogen 10 mg/dL (7-17); Calcium 8.9 mg/dL (8.4-10.2); Hemolysis Index 0
--- NOTE | 2019-05-12 05:45 | Cat Scan Report ---
CTA CHEST WITH IV CONTRAST, 05/12/2019 INDICATION: Chest pain. Shortness of breath. TECHNIQUE: Axial CT images were obtained through the chest after injection of IV contrast. Coronal oblique 2-D reconstruction images were produced. 3 plane MIP reconstruction images were produced at an [employer] workstation. All CTs at this facility utilize dose reduction techniques including automated expos ure control, iterative reconstruction and weight based dosing when appropriate to reduce patient radi ation dose to as low as reasonable achievable. COMPARISON: CT angiogram of the chest, 04/25/2019 FINDINGS: No filling defects are visualized within the central or segmental pulmonary arteries to suggest pulmo nary embolism. The heart is normal in size. The thoracic aorta is normal in caliber. Evaluation of th e lung parenchyma demonstrates no focal airspace consolidation or pleural effusion. Limited imaging of the upper abdomen demonstrates no evidence of acute abnormality. There are bilater al renal cysts. Evaluation of bony structures demonstrates no evidence of acute bony abnormality. IMPRESSION: 1. No evidence of pulmonary embolism or acute parenchymal process. Signer Name: Floridalma Singh MD Signed: 05/12/2019 5:41 AM Workstation Name: [id number]
== END 2019-05-12 06:10 | disposition home or self-care (01) ==
LOC: ED 22:53
DX: O99.345 Other mental disorders complicating the puerperium (principal); F41.1 Generalized anxiety disorder; R07.89 Other chest pain; O16.5 Unspecified maternal hypertension, complicating the puerperium; O90.81 Anemia of the puerperium; Z79.899 Other long term (current) drug therapy
CPT/HCPCS: 36415; 71046; 71275; 80053; 81001; 84484; 85025; 85379; 93005; 93010; 99285; Q9967

== ENCOUNTER 2019-11-24 22:13 | Emergency (ER) | payer OTHER ==
--- NOTE | 2019-11-24 22:57 | XRay Report ---
CHEST 1 VIEW 11/24/2019 10:50 PM INDICATION / CLINICAL INFORMATION: Chest Pain. COMPARISON: Chest x-ray 11/20/2019 FINDINGS: SUPPORT DEVICES: None. HEART / MEDIASTINUM: No significant abnormality. LUNGS / PLEURA: No significant pulmonary or pleural abnormality. No pneumothorax. ADDITIONAL FINDINGS: No significant additional findings. IMPRESSION: 1. No acute findings. Signer Name: Ryan Wang MD Signed: 11/24/2019 10:53 PM Workstation Name: [id number]
[2019-11-24 22:58] LABS: Basophils # (Auto) 0.1 K/mm3 (0.0-0.1); Basophils % (Auto) 0.9 % (0.0-1.8); Eosinophils # (Auto) 0.1 K/mm3 (0.0-0.4); Eosinophils % (Auto) 1.8 % (0.0-4.3); Hemoglobin 11.4 gm/dl (10.1-14.3); Lymphocytes # (Auto) 2.5 K/mm3 (1.2-5.4); Lymphocytes % (Auto) 38.5 % (13.4-35.0); Mean Corpuscular HGB Conc 33 % (30-34); Mean Corpuscular Volume 76 fl (79-97); Monocytes # (Auto) 0.5 K/mm3 (0.0-0.8); Platelet Count 269 K/mm3 (140-440); Red Blood Count 4.61 M/mm3 (3.65-5.03); Red Cell Distribution Width 18.1 % (13.2-15.2)
[2019-11-24 23:18] LABS: BUN/Creatinine Ratio 16; Blood Urea Nitrogen 11 mg/dL (7-17); Calcium 9.3 mg/dL (8.4-10.2); Hemolysis Index 18
--- NOTE | 2019-11-25 01:36 | Emergency Department Report ---
ED Chest Pain HPI - General Chief Complaint: Chest Pain Stated Complaint: CHEST PAIN Time Seen by Provider: 11/25/19 01:27 Source: patient Mode of arrival: Ambulatory Limitations: No Limitations - History of Present Illness Initial Comments: 39-year-old female presents to ED with complaints mild left-sided chest pain, shortness of breath, bilateral lower leg pain, lower back pain x4 days. Patient denies fever, cough, leg swelling. She also reports lower abdominal pain and urinary frequency. MD Complaint: chest pain -: days(s) (4) Onset: during rest Pain Location: left chest Pain Radiation: none Severity: mild Quality: sharp Consistency: intermittent Improves With: nothing Worsens With: nothing re: dyspnea. denies: nausea, vomting, diaphoresis Other Symptoms: denies: cough, fever, leg swelling - Related Data Previous Rx's Medication Instructions Recorded Last Taken Type Ibuprofen [Motrin 800 MG tab] 800 mg PO Q8HR PRN #30 tablet 07/23/17 2 Days Ago Rx ~04/24/19 Lidocain2.5%/Prilocai2.5% [Emla] 5 gm TP ONCE PRN #1 tube 07/23/17 2 Days Ago Rx ~04/24/19 Butalb/Acetaminophen/Caffeine 1 cap PO Q8HR PRN #12 cap 04/20/19 2 Days Ago Rx [Fioricet 50-300-40 mg CAP] ~04/24/19 Amoxicillin/Potassium Clav 1 each PO BID #14 tablet 04/27/19 Unknown Rx [Augmentin 875-125 Tablet] Naproxen [Naprosyn] 500 mg PO BID #14 tablet 11/20/19 Unknown Rx Sulfamethoxazole/Trimethoprim 1 each PO BID #6 tablet 11/25/19 Unknown Rx [Bactrim DS TAB] Allergies Allergy/AdvReac Type Severity Reaction Status Date / Time No Known Allergies Allergy Verified 01/13/18 13:13 Heart Score - HEART Score History: Slightly suspicious EKG: Normal Age: < 45 Risk factors: No known risk factors Troponin: < normal limit HEART Score: 0 ED Review of Systems ROS: Stated complaint: CHEST PAIN Other details as noted in HPI Comment: All other systems reviewed and negative Constitutional: denies: chills, fever Respiratory: shortness of breath. denies: cough Cardiovascular: chest pain Gastrointestinal: abdominal pain Genitourinary: frequency Musculoskeletal: back pain, other (Reports bilateral lower leg pain, denies swelling) ED Past Medical Hx - Past Medical History Previous Medical History?: Yes Hx Hypertension: Yes (not on meds) Hx CVA: No Hx Heart Attack/AMI: No Hx Congestive Heart Failure: No Hx Diabetes: No Hx Deep Vein Thrombosis: No Hx Pulmonary Embolism: No Hx GERD: No Hx Liver Disease: No Hx Renal Disease: No Hx Sickle Cell Disease: No Hx Arthritis: No Hx Headaches / Migraines: No Hx Seizures: No Hx Kidney Stones: No Hx Psychiatric Treatment: Yes (Anxiety) Hx Asthma: No Hx COPD: No Hx Tuberculosis: No Hx Dementia: No Hx HIV: No Additional medical history: Low Iron(anemia) - Surgical History Past Surgical History?: Yes Hx Coronary Stent: No Hx Open Heart Surgery: No Hx Pacemaker: No Hx Internal Defibrillator: No Hx Cholecystectomy: No Hx Appendectomy: No Hx Breast Surgery: No Additional Surgical History: x 1. LEEP - Social History Smoking Status: Former Smoker Substance Use Type: Alcohol, Marijuana - Medications Home Medications: Home Medications Medication Instructions Recorded Confirmed Last Taken Type Ibuprofen [Motrin 800 MG tab] 800 mg PO Q8HR PRN #30 tablet 07/23/17 04/26/19 2 Days Ago Rx ~04/24/19 Lidocain2.5%/Prilocai2.5% [Emla] 5 gm TP ONCE PRN #1 tube 07/23/17 04/26/19 2 Days Ago Rx ~04/24/19 Butalb/Acetaminophen/Caffeine 1 cap PO Q8HR PRN #12 cap 04/20/19 04/26/19 2 Days Ago Rx [Fioricet 50-300-40 mg CAP] ~04/24/19 Amoxicillin/Potassium Clav 1 each PO BID #14 tablet 04/27/19 Unknown Rx [Augmentin 875-125 Tablet] Naproxen [Naprosyn] 500 mg PO BID #14 tablet 11/20/19 Unknown Rx Sulfamethoxazole/Trimethoprim 1 each PO BID #6 tablet 11/25/19 Unknown Rx [Bactrim DS TAB] ED Physical Exam - General Limitations: No Limitations General appearance: alert, in no apparent distress - Head Head exam: Present: atraumatic, normocephalic - Eye Eye exam: Present: normal appearance, PERRL, EOMI - ENT ENT exam: Present: mucous membranes moist - Neck Neck exam: Present: normal inspection - Respiratory Respiratory exam: Present: normal lung sounds bilaterally. Absent: respiratory distress - Cardiovascular Cardiovascular Exam: Present: regular rate, normal rhythm - GI/Abdominal GI/Abdominal exam: Present: soft. Absent: distended, tenderness - Extremities Exam Extremities exam: Present: normal inspection, pedal edema. Absent: calf tenderness - Back Exam Back exam: Absent: CVA tenderness (R), CVA tenderness (L) - Neurological Exam Neurological exam: Present: alert, oriented X3 - Psychiatric Psychiatric exam: Present: normal affect, normal mood - Skin Skin exam: Present: warm, dry, intact, normal color ED Course Vital Signs 11/24/19 11/25/19 22:27 04:58 Temperature 98.6 F 98 F Pulse Rate 69 76 Respiratory 20 16 Rate Blood Pressure 145/92 Blood Pressure 122/66 [Left] O2 Sat by Pulse 99 100 Oximetry ED Medical Decision Making - Lab Data Result diagrams: 11/24/19 22:46 11/24/19 22:46 - EKG Data -: EKG Interpreted by Pa EKG shows normal: sinus rhythm, axis, intervals, QRS complexes, ST-T waves Rate: normal - EKG Data Interpretation: no acute changes - Radiology Data Radiology results: report reviewed, image reviewed - Medical Decision Making - EKG and troponin unremarkable - CXR normal - D-dimer slightly elevated, so CTA Chest obtained which is neg for PE - Outpt f/u advised, return precautions given. - Differential Diagnosis chest wall pain, ACS, PE, anxiety Critical care attestation.: If time is entered above; I have spent that time in minutes in the direct care of this critically ill patient, excluding procedure time. ED Disposition Clinical Impression: Chest pain, UTI (urinary tract infection) Disposition: TO HOME OR SELFCARE Is pt being admited?: No Condition: Stable Instructions: Chest Pain (ED), Urinary Tract Infection in Women (ED) Prescriptions: Sulfamethoxazole/Trimethoprim [Bactrim DS TAB] 1 each PO BID #6 tablet Referrals: JOSELINE MERRILL MD [Primary Care Provider] - 3-5 Days [facility] [Provider Group] - 3-5 Days TARAS BROCK MD [Staff Physician] - 3-5 Days Time of Disposition: 04:32
[2019-11-25 02:05] LABS: Partial Thromboplastin Time 29.2 Sec. (24.2-36.6)
[2019-11-25 02:40] LABS: Bacteria,Urine 2+ /HPF (Negative); Bilirubin,Urine NEG (Negative); Blood,Urine NEG (Negative); Color,Urine Yellow (Yellow); Mucus,Urine FEW /HPF; Protein,Urine <15 mg/dL mg/dL (Negative); Urobilinogen,Urine < 2.0 mg/dL (<2.0)
[2019-11-25 02:41] LABS: HCG Qualitative,Urine Negative (Negative)
--- NOTE | 2019-11-25 03:48 | Cat Scan Report ---
CTA CHEST WITH IV CONTRAST INDICATION: MAIN: chest pain, 100cc [id number]. TECHNIQUE: Axial CT images were obtained through the chest after injection of 100 cc Omnipaque 350 IV contrast. 3 plane MIP reconstructions were produced. All CT scans at this location are performed using CT dose reduction for ALARA by means of automated exposure control. COMPARISON: CTA chest 05/12/2019 FINDINGS: PULMONARY ARTERIES: No pulmonary emboli. THORACIC AORTA: Ectatic 4.1 cm mid ascending thoracic aorta. Previously, the mid thoracic aorta was o bscured by moderate respiratory motion artifact. HEART: Normal. CORONARY ARTERIES: No significant calcification. PLEURA: No pleural effusion. No pneumothorax. LYMPH NODES: No significant adenopathy. LUNGS: No acute air space or interstitial disease. ADDITIONAL FINDINGS: None. UPPER ABDOMEN: No acute findings. SKELETAL STRUCTURES: No significant osseous abnormality. IMPRESSION: 1. No CT evidence for pulmonary embolism. 2. Ectatic 4.1 cm mid ascending thoracic aorta, unchanged Signer Name: Ryan Wang MD Signed: 11/25/2019 3:44 AM Workstation Name: [email or web address]
[2019-11-25 04:59] VITALS: BP 122/66
== END 2019-11-25 04:59 | disposition home or self-care (01) ==
LOC: ED 22:13
DX: R07.89 Other chest pain (principal); N39.0 Urinary tract infection, site not specified; I10 Essential (primary) hypertension; F41.9 Anxiety disorder, unspecified; F17.210 Nicotine dependence, cigarettes, uncomplicated; Z79.899 Other long term (current) drug therapy
CPT/HCPCS: 36415; 71045; 71275; 80048; 81001; 81025; 84484; 85025; 85379; 85610; 85730; 93005; 99285; Q9967

== ENCOUNTER 2020-02-24 21:30 | Emergency (ER) | payer OTHER ==
[2020-02-24] MEDS ORDERED: ASPIRIN 325 MG TAB PO ONE (22:25)
[2020-02-24 23:07] LABS: BUN/Creatinine Ratio 13; Blood Urea Nitrogen 10 mg/dL (7-17); Calcium 9.4 mg/dL (8.4-10.2); Hemolysis Index 4
[2020-02-24 23:12] LABS: Hematocrit 35.9 % (30.3-42.9); Hemoglobin 11.6 gm/dl (10.1-14.3); Mean Corpuscular HGB Conc 32 % (30-34); Mean Corpuscular Volume 77 fl (79-97); Platelet Count 312 K/mm3 (140-440); Red Blood Count 4.66 M/mm3 (3.65-5.03); Red Cell Distribution Width 18.7 % (13.2-15.2)
--- NOTE | 2020-02-24 23:42 | XRay Report ---
. CHEST 1 VIEW INDICATION: Chest Pain. COMPARISON: 11/24/2019 FINDINGS: Support devices: None. Heart: Within normal limits. Lungs/Pleura: No acute air space or interstitial disease. Additional findings: None. IMPRESSION: No acute abnormality. Signer Name: Storm Mendoza MD Signed: 02/24/2020 11:38 PM Workstation Name: [id number]
[2020-02-25 01:38] LABS: Eosinophils % (Manual) 0 % (0.0-4.3); Total Cells Counted 100
[2020-02-25 01:39] LABS: Anisocytosis 1+; Platelet Estimate Consistent w Auto
--- NOTE | 2020-02-25 01:47 | Cat Scan Report ---
CT angio chest INDICATION / CLINICAL INFORMATION: CP, elevated dimer. TECHNIQUE: Axial CT images were obtained after injection of Omnipaque 350, 100 cc IV contrast using CTA protocol . 3 plane MIP / 3D reconstructions were produced. All CT scans at this location are performed using C T dose reduction for ALARA by means of automated exposure control. COMPARISON: CTA chest 11/25/2019 FINDINGS: The lungs contain no mass, infiltrate or pleural fluid. No mediastinal mass or adenopathy. Imaging of the upper abdomen demonstrates a 1 cm right renal cyst. Negative for dissection or pulmonary embolus. Aneurysmal dilatation of the ascending thoracic aorta i s unchanged measuring 4.1 cm. IMPRESSION: 1. Negative for pulmonary embolus or pneumonia. 2. Stable mild aneurysmal dilatation of the ascending thoracic aorta. Signer Name: Storm Mendoza MD Signed: 02/25/2020 1:43 AM Workstation Name: [id number]
--- NOTE | 2020-02-25 02:04 | Emergency Department Report ---
HPI - General Chief Complaint: Chest Pain Time Seen by Provider: 02/24/20 23:36 - HPI HPI: This is a 39-year-old -[place] female presents to the emergency department with multiple complaints. Patient says that she has been having a 2- month history of intermittent left-sided chest pains. Sometimes these pains will radiate down her left arm. Sometimes the patient also says that she will get random pains in her lower extremities, but she denies any lower extremity swelling. The reason the patient came into the emergency department this even ing is because she felt lightheaded and felt "off." Patient says that she was trying to cook but "I was unable to cook like I wanted to", as the patient felt her mind was not working as sharply as usual. Patient has not taken anything for symptoms prior to presentation. She says that she has a past medical history of hypertension but is not on any medication for it. She also has a history of anxiety and anemia. She has a primary care physician but is not seen them regarding the symptoms. No recent travel or sick contacts at home. ED Past Medical Hx - Past Medical History Previous Medical History?: Yes Hx Hypertension: Yes (not on meds) Hx CVA: No Hx Heart Attack/AMI: No Hx Congestive Heart Failure: No Hx Diabetes: No Hx Deep Vein Thrombosis: No Hx Pulmonary Embolism: No Hx GERD: No Hx Liver Disease: No Hx Renal Disease: No Hx Sickle Cell Disease: No Hx Arthritis: No Hx Headaches / Migraines: No Hx Seizures: No Hx Kidney Stones: No Hx Psychiatric Treatment: Yes (Anxiety) Hx Asthma: No Hx COPD: No Hx Tuberculosis: No Hx Dementia: No Hx HIV: No Additional medical history: Low Iron(anemia) - Surgical History Past Surgical History?: Yes Hx Coronary Stent: No Hx Open Heart Surgery: No Hx Pacemaker: No Hx Internal Defibrillator: No Hx Cholecystectomy: No Hx Appendectomy: No Hx Breast Surgery: No Additional Surgical History: x 1. LEEP - Social History Smoking Status: Never Smoker Substance Use Type: None - Medications Home Medications: Home Medications Medication Instructions Recorded Confirmed Last Taken Type Ibuprofen [Motrin 800 MG tab] 800 mg PO Q8HR PRN #30 tablet 07/23/17 04/26/19 2 Days Ago Rx ~04/24/19 Lidocain2.5%/Prilocai2.5% [Emla] 5 gm TP ONCE PRN #1 tube 07/23/17 04/26/19 2 Days Ago Rx ~04/24/19 Butalb/Acetaminophen/Caffeine 1 cap PO Q8HR PRN #12 cap 04/20/19 04/26/19 2 Days Ago Rx [Fioricet 50-300-40 mg CAP] ~04/24/19 Amoxicillin/Potassium Clav 1 each PO BID #14 tablet 04/27/19 Unknown Rx [Augmentin 875-125 Tablet] Naproxen [Naprosyn] 500 mg PO BID #14 tablet 11/20/19 Unknown Rx Sulfamethoxazole/Trimethoprim 1 each PO BID #6 tablet 11/25/19 Unknown Rx [Bactrim DS TAB] ED Review of Systems ROS: Stated complaint: CHEST PAIN/BODYACHES/HEADACHE/DIZZINESS Other details as noted in HPI Comment: All other systems reviewed and negative Constitutional: denies: chills, fever Eyes: denies: eye pain, vision change ENT: denies: ear pain, throat pain Respiratory: denies: cough, wheezing Cardiovascular: chest pain. denies: palpitations Gastrointestinal: denies: abdominal pain, vomiting Genitourinary: denies: dysuria, discharge Musculoskeletal: myalgia. denies: joint swelling Skin: denies: rash, lesions Neurological: denies: headache, weakness, numbness Physical Exam - Physical Exam Vital Signs: Vital Signs 02/24/20 02/25/20 22:05 00:42 Temperature 98.5 F Pulse Rate 66 54 L Respiratory 18 16 Rate Blood Pressure 142/79 Blood Pressure 110/74 [Right] O2 Sat by Pulse 98 99 Oximetry Physical Exam: GENERAL: The patient is well-developed well-nourished. HENT: Normocephalic. Atraumatic. Patient has moist mucous membranes. EYES: Extraocular motions are intact. Pupils equal reactive to light bilaterally. No nystagmus. NECK: Supple. Trachea is midline. CHEST/LUNGS: Clear to auscultation. There is no respiratory distress noted. HEART/CARDIOVASCULAR: Regular. There is no tachycardia. There is no murmur. ABDOMEN: Abdomen is soft, nontender. Patient has normal bowel sounds. There is no abdominal distention. SKIN: Skin is warm and dry. NEURO: The patient is awake, alert, and oriented. The patient is cooperative. The patient has no focal neurologic deficits. Normal speech. Cranial nerves II through XII grossly intact. No pronator drift. No dysmetria. No facial asymmetry. MUSCULOSKELETAL: There is no tenderness or deformity. There is no limitation range of motion. There is no evidence of acute injury. Muscle strength 5 out of 5 for upper and lower extremities bilaterally. ED Course Vital Signs 02/24/20 02/25/20 22:05 00:42 Temperature 98.5 F Pulse Rate 66 54 L Respiratory 18 16 Rate Blood Pressure 142/79 Blood Pressure 110/74 [Right] O2 Sat by Pulse 98 99 Oximetry ED Medical Decision Making - Lab Data Result diagrams: 02/24/20 22:35 02/24/20 22:35 - EKG Data -: EKG Interpreted by Me EKG shows normal: sinus rhythm, axis, intervals, QRS complexes, ST-T waves Rate: normal - EKG Data When compared to previous EKG there are: previous EKG unavailable Interpretation: normal EKG - Radiology Data Radiology results: report reviewed, image reviewed interpreted by me: Chest x-ray does not show any acute process. There are no pleural effusions, obvious pneumonia and there is no pneumothorax. No significant cardiomegaly. CT angio chest INDICATION / CLINICAL INFORMATION: CP, elevated dimer. TECHNIQUE: Axial CT images were obtained after injection of Omnipaque 350, 100 cc IV contrast using CTA protocol. 3 plane MIP / 3D reconstructions were produced. All CT scans at this location are performed using CT dose reduction for ALARA by means of automated exposure control. COMPARISON: CTA chest 11/25/2019 FINDINGS: The lungs contain no mass, infiltrate or pleural fluid. No mediastinal mass or adenopathy. Imaging of the upper abdomen demonstrates a 1 cm right renal cyst. Negative for dissection or pulmonary embolus. Aneurysmal dilatation of the ascending thoracic aorta is unchanged measuring 4.1 cm. IMPRESSION: 1. Negative for pulmonary embolus or pneumonia. 2. Stable mild aneurysmal dilatation of the ascending thoracic aorta. - Medical Decision Making Patient presents with some chronic intermittent left-sided chest pains. An EKG was done that does not have any morphology consistent with ST elevation RI. The patient's labs were mostly unremarkable including CBC, metabolic panel, negative troponin, normal TSH, urinalysis without UTI and the patient is not . She did have an elevated and equivocal d-dimer level. For this reason a CT angiography of the chest was done that did not show any pulmonary embolus, pneumonia or any other acute process, but did show a stable mild aneurysm of the ascending thoracic aorta at 4.1 cm. The patient has previous CT imaging of the chest that showed this aneurysm but the patient apparently was not aware of it. We discussed this incidental finding. I do not feel that it is related to the patient's symptoms but she is now aware and can follow-up through a primary care physician or cardiothoracic surgeon. On examination the patient does not have any focal, motor or sensory deficits and her cranial nerves are intact. She describes some nonspecific lightheadedness, which was the reason she was brought in. She was seen ambulatory in the emergency department and both appears and feels stable. Her vital signs have been reassuring throughout her ED course including being afebrile. For all these reasons the patient appears safe for discharge home at this time. She has been instructed to follow-up with primary care and cardiology. She will return to [facility] emergency department with any worsening of her symptoms or with any acute distress. Critical care attestation.: If time is entered above; I have spent that time in minutes in the direct care of this critically ill patient, excluding procedure time. ED Disposition Clinical Impression: Intermittent chest pain, Thoracic aortic aneurysm, Light-headed feeling Disposition: TO HOME OR SELFCARE Is pt being admited?: No Condition: Stable Instructions: Chest Pain (ED), Thoracic Aortic Aneurysm (ED), Lightheadedness (ED) Additional Instructions: Please follow-up with your primary care physician in the next few days. I have also given you a referral for a local screening tech, Dr. Gonzalez, to follow-up regarding your intermittent chest pains. Return to the emergency department with any worsening of your symptoms or with any acute distress. Referrals: PRIMARY CARE, [Primary Care Provider] - 2-3 Days YAMILET GONZALEZ MD [Staff Physician] - 2-3 Days Time of Disposition: 02:04 HEART Score - HEART Score History: Slightly suspicious EKG: Normal Age: < 45 Risk factors: 1-2 risk factors Troponin: Troponin T < 0.010 ng/mL (0.00-0.029) 02/24/20 22:35 Troponin: < normal limit HEART Score: 1 - Critical Actions Critical Actions: 0-3 pts:0.9-1.7%risk of adverse cardiac event.Candidate for discharge ALYSSA score - Alyssa Score Age > 65: (0) No Aspirin use within the Past 7 Days: (0) No 3 or more CAD Risk Factors: (0) No 2 or more Angina events in past 24 hrs: (1) Yes Known CAD with more than 50% Stenosis: (0) No Elevated Cardiac Markers: (0) No ST Deviation Greater than 0.5mm: (0) No ALYSSA Score: 1
[2020-02-25 02:19] VITALS: BP 112/72
== END 2020-02-25 02:19 | disposition home or self-care (01) ==
LOC: ED 21:30
DX: I71.2 Thoracic aortic aneurysm, without rupture (principal); R42 Dizziness and giddiness; R07.89 Other chest pain; I10 Essential (primary) hypertension; F41.9 Anxiety disorder, unspecified; Z98.890 Other specified postprocedural states; Z79.1 Long term (current) use of non-steroidal anti-inflammatories (NSAID); Z79.2 Long term (current) use of antibiotics; Z79.899 Other long term (current) drug therapy
CPT/HCPCS: 36415; 71045; 71275; 80048; 84443; 84484; 84703; 85025; 85379; 93005; 99285; Q9967; 85007

== ENCOUNTER 2020-11-24 20:37 | Emergency (ER) | payer OTHER ==
[2020-11-24 20:59] VITALS: BP 147/90
--- NOTE | 2020-11-24 21:12 | Emergency Department Report ---
Chief Complaint: Recheck/Abnormal Lab/Rx Stated Complaint: CHEST PAIN/ARM NUMB/RECENT SURGERY Time Seen by Provider: 11/24/20 20:58 - HPI History of Present Illness: Patient presents with complaints of pain and bruising to incision site of left thigh after having varicose vein surgery few days ago. She denies any fever/chills/sweats, redness, swelling to the area, cough, or shortness of breath. Tylenol helps somewhat with the pain per patient. She states she has a follow-up appointment for another procedure tomorrow with the vascular surgeon. - Exam Vital Signs: Vital Signs 11/24/20 20:57 Temperature 98.1 F Pulse Rate 70 Respiratory 18 Rate Blood Pressure 147/90 O2 Sat by Pulse 100 Oximetry MSE screening note: Focused history and physical exam performed. Due to findings the following was ordered: ED Medical Decision Making - Medical Decision Making No signs of infection of incision site on exam. She is well-appearing, her vitals are within normal limits, she is stable for discharge home. Patient is to follow-up with her vascular surgeon tomorrow as scheduled. Signs and symptoms that should prompt immediate return to the emergency department were discussed in detail patient who verbalized understanding. ED Disposition for MSE Clinical Impression: Visit for wound check Disposition: DC-01 TO HOME OR SELFCARE Is pt being admited?: No Condition: Stable Instructions: Paresthesia ED Physical Exam - General Limitations: No Limitations General appearance: alert, in no apparent distress - Head Head exam: Present: atraumatic, normocephalic - Eye Eye exam: Present: normal appearance - Respiratory Respiratory exam: Absent: respiratory distress - Cardiovascular Cardiovascular Exam: Present: regular rate - Neurological Exam Neurological exam: Present: alert, oriented X3, normal gait - Psychiatric Psychiatric exam: Present: normal affect, normal mood - Skin Skin exam: Present: warm, dry, intact, normal color, ecchymosis (Small 2 cm round area of bruising noted to left anterior thigh incision site without drainage, erythema, or significant tenderness to palpation). Absent: rash ED Review of Systems ROS: Stated complaint: CHEST PAIN/ARM NUMB/RECENT SURGERY Other details as noted in HPI Constitutional: denies: chills, diaphoresis, fever, malaise Respiratory: denies: cough, shortness of breath Skin: denies: rash, lesions Hematological/Lymphatic: denies: easy bleeding
== END 2020-11-24 21:10 | disposition home or self-care (01) ==
LOC: ED 20:37
DX: R07.9 Chest pain, unspecified (principal); R20.0 Anesthesia of skin; Z51.89 Encounter for other specified aftercare